=== PATIENT | female | born 1945 | race Caucasian/White ===

== ENCOUNTER 2016-09-05 18:31 | Inpatient (IN) | payer MEDICARE, BC ==
[2016-09-05] MEDS ORDERED: NS 0.9% 1000 ML* 1,000 ML IV ONE (18:44)
[2016-09-05 18:57] LABS: Comments Flag Yes; Hematocrit 43 % (35-47); Hemoglobin 13.5 g/dl (12.0-16.0); Mean Corpuscular HGB Conc 32 g/dl (31-36); Mean Corpuscular Hemoglobin 29 pg (27-31); Mean Corpuscular Volume 92 fL (80-97); Mean Platelet Volume 10 um3 (7.4-10.4); Red Blood Count 4.65 10^6/ul (4.0-5.4); Red Cell Distribution Width 19 % (10.5-15); White Blood Count 13.7 10^3/ul (3.5-10.8)
[2016-09-05 19:11] LABS: ALT 15 U/L (7-52); Albumin 3.5 g/dL (3.2-5.2); Alkaline Phosphatase 81 U/L (34-104); BUN/Creatinine Ratio 23.4 (8-20); Blood Urea Nitrogen 26 mg/dL (6-24); C Reactive Protein 176.27 mg/L (< 5.00); CO2 Carbon Dioxide 23 mmol/L (22-32); Calcium 9.6 mg/dL (8.6-10.3); Chloride 118 mmol/L (101-111); EGFR African American 62.7 (>60); EGFR Non-African American 48.7 (>60); Globulin 4.4 g/dL (2-4); Glucose 132 mg/dL (70-100); Sodium 150 mmol/L (133-145); Total Protein 7.9 g/dL (6.4-8.9)
[2016-09-05 19:13] LABS: Troponin I 0.01 ng/mL (<0.04)
--- NOTE | 2016-09-05 19:16 | RAD ---
INDICATION: Altered mental status COMPARISON: CT chest 09/03/2016; chest x-ray 06/09/2016 TECHNIQUE: An AP portable view obtained at 1901 hours is submitted. FINDINGS: Bones/Soft Tissues: There are no acute bony findings. Cardiomediastinal: The cardiomediastinal silhouette is normal. Lungs: There are no acute infiltrates. There is persistent obscuration left hemidiaphragm. Earlier CT imaging has shown airspace disease in the left lung base. Please refer also to CT chest report Pleura: There are no pleural effusions. Other: None IMPRESSION: STABLE LEFT BASILAR ABNORMALITIES
[2016-09-05] MEDS ORDERED: Acetaminophen SUPP* 650 MG SUPP PR ONE (21:32)
[2016-09-05] MEDS ORDERED: Levofloxacin 750 MG IVPREMIX(* 750 MG/150 ML BAG IVPB ONE (21:32)
[2016-09-05 21:55] LABS: Urine Bacteria Absent (Absent); Urine Bilirubin Negative (Negative); Urine Glucose Negative (Negative); Urine Nitrite Negative (Negative)
--- NOTE | 2016-09-05 23:23 | ED ---
Vel Yates Billy, scribed for Augie Krishnamurthy MD on 09/05/16 at 1910 . Complex/Multi-Sys Presentation - HPI Summary HPI Summary: Patient is a 71 year-old female BIBA to [facility] presenting with increased confusion and AMS today. Per EMS, patient's son reports fever at home TMax 101F. PMHx of Alzheimer's and frequent UTI. Level 5 caveat. - History Of Current Complaint Chief Complaint: EDAltMentalStatus Time Seen by Provider: 09/05/16 18:36 Hx Obtained From: EMS, Medical Records Hx From Patient Unobtainable Due To: Altered Mental Status - level 5 caveat Onset/Duration: Gradual Onset Timing: Constant Severity Currently: Moderate Severity Initially: Moderate Aggravating Factor(s): none Alleviating Factor(s): none Associated Signs And Symptoms: Positive: Confusion, Fever - Allergies/Home Medications Allergies/Adverse Reactions: Allergies Allergy/AdvReac Type Severity Reaction Status Date / Time Erythromycin Allergy GI Upset Verified 09/05/16 22:27 Latex Allergy Rash Verified 06/09/16 21:36 Quinine Allergy Anaphylatic Verified 06/09/16 21:36 Shock Scopolamine Allergy See Comment Verified 08/07/16 00:13 Sulfamethoxazole Allergy GI Upset Verified 09/05/16 22:27 w/Trimethoprim [From Bactrim] Home Medications: Home Medications Cholecalciferol [Vitamin D] 1,000 unit PO DAILY 09/05/16 [History Confirmed ] PMH/Surg Hx/FS Hx/Imm Hx Endocrine/Hematology History: Reports: Hx Thyroid Disease - Hypothyroidism, Hx Anemia Denies: Hx Diabetes Cardiovascular History: Reports: Hx Hypercholesterolemia, Hx Hypertension, Other Cardiovascular Problems/Disorders - HLD Denies: Hx Congestive Heart Failure, Hx Pacemaker/ICD Respiratory History: Reports: Hx Sleep Apnea Denies: Hx Asthma, Hx Chronic Obstructive Pulmonary Disease (COPD) GI History: Reports: Other GI Disorders - pancreatitis Denies: Hx Ulcer History: Reports: Hx Kidney Stones, Other Problems/Disorders - L hydronephrosis, urolitiasis Denies: Hx Dialysis, Hx Renal Disease Musculoskeletal History: Reports: Hx Arthritis - RHEUMATOID AND OSTEOARTHRITIS, Other Musculoskeletal History - RA, OA, fibromyalgia, chronic fatigue Sensory History: Reports: Hx Contacts or Glasses, Hx Hearing Problem Denies: Hx Hearing Aid Opthamlomology History: Reports: Hx Contacts or Glasses Neurological History: Reports: Hx Dementia - early onset Alzheimer's, Hx Nerve Disease - fibromyalgia, Hx Transient Ischemic Attacks (TIA), Other Neuro Impairments/Disorders - dementia, Alzheimers disease Psychiatric History: Reports: Hx Depression - ON MEDICATION FOR, Hx Post Traumatic Stress Disorder Denies: Hx Panic Disorder - Surgical History Surgery Procedure, Year, and Place: ROTATOR CUFF REPAIR. EYE LIDS LIFT. ARTHROSCOPIC KNEE. CYST REMOVED. T&A. KIDNEY STONE- LEFT URETHRAL STENT PLACED LAST WEEK Hx Anesthesia Reactions: No - poor history unable to obtain Infectious Disease History: Unable to Obtain/Confirm Infectious Disease History: Denies: Hx Hepatitis, Hx Human Immunodeficiency Virus (HIV), Hx of Known/ Suspected MRSA, History Other Infectious Disease, Traveled Outside the [place] in Last 30 Days - Family History Known Family History: Positive: Unknown - LEVEL 5 CAVEAT - Social History Alcohol Use: None Hx Substance Use: Yes Substance Use Type: Reports: None Hx Tobacco Use: Yes Smoking Status (MU): Former Smoker Type: Cigarettes Amount Used/How Often: UNKNOWN, level 5 caviat Have You Smoked in the Last Year: No Review of Systems Positive: Fever Neurological: Other - confusion All Other Systems Reviewed And Are Negative: No - Comments Additional Review of Systems Comments: Level 5 caveat. Physical Exam Triage Information Reviewed: Yes Vital Signs On Initial Exam: Initial Vitals Temp Pulse Resp BP Pulse Ox 97.6 F 102 15 152/86 99 09/05/16 18:52 09/05/16 18:52 09/05/16 18:52 09/05/16 18:52 09/05/16 18:52 Vital Signs Reviewed: Yes Completion Of Physical Exam Limited Due To: Altered Mental Status, Level 5 Appearance: Positive: Obese Skin: Positive: Warm, Skin Color Reflects Adequate Perfusion Head/Face: Positive: Normal Head/Face Inspection Eyes: Positive: Normal ENT: Positive: Other - dry mucous membranes Neck: Positive: Supple, Nontender Respiratory/Lung Sounds: Positive: Clear to Auscultation, Breath Sounds Present Cardiovascular: Positive: RRR Abdomen Description: Positive: Nontender, Soft Musculoskeletal: Positive: Normal Neurological: Positive: Other - stuporous, responds to verbal stimuli AVPU Assessment: Alert Diagnostics - Vital Signs Vital Signs Temp Pulse Resp BP Pulse Ox 09/05/16 18:52 97.6 F 102 15 152/86 99 - Laboratory Lab Results: Lab Results 09/05/16 Range/Units 18:45 WBC 13.7 H (3.5-10.8) 10^3/ul RBC 4.65 (4.0-5.4) 10^6/ul Hgb 13.5 (12.0-16.0) g/dl Hct 43 (35-47) % MCV 92 (80-97) fL MCH 29 (27-31) pg MCHC 32 (31-36) g/dl RDW 19 H (10.5-15) % Plt Count 177 (150-450) 10^3/ul MPV 10 (7.4-10.4) um3 Neut % (Auto) 70.7 (38-83) % Lymph % (Auto) 13.1 L (25-47) % [place] % (Auto) 15.2 H (1-9) % Eos % (Auto) 0.3 (0-6) % Baso % (Auto) 0.7 (0-2) % Absolute Neuts (auto) 9.7 H (1.5-7.7) 10^3/ul Absolute Lymphs (auto) 1.8 (1.0-4.8) 10^3/ul Absolute Monos (auto) 2.1 H (0-0.8) 10^3/ul Absolute Eos (auto) 0 (0-0.6) 10^3/ul Absolute Basos (auto) 0.1 (0-0.2) 10^3/ul Absolute Nucleated RBC 0.01 10^3/ul Nucleated RBC % 0.1 Result Diagrams: 09/05/16 18:45 09/05/16 21:15 Lab Statement: Any lab studies that have been ordered have been reviewed, and results considered in the medical decision making process. - Radiology CXR Radiology Interpretation Completed By: Radiologist - Stable left basilar abnormalities. - EKG 1831 EKG Interpretation: sinus tachy 113 bpm, nonspecific ST changes Complex Multi-Symp Course/Dx Course Of Treatment: Iraida Turner presented from home with a C/O decreased mental status. She is normally uncommunicative but alert and able to transfer and now she is stuporous and arouses to voice but doesn't follow commands. She was febrile with a slight leukocytosis and no obvious source. She was treated with fluids and antibiotics for sepsis. - Diagnoses Provider Diagnoses: Sepsis - Physician Notifications Discussed Care Of Patient With: Dr. Zambrano (hospitalist) @ 2225: accepts admission. Discharge - Discharge Plan Condition: Stable Disposition: ADMITTED TO [facility] Referrals: Marcela Best MD [Primary Care Provider] - The documentation as recorded by the Vel das Billy accurately reflects the service I personally performed and the decisions made by me, Augie Krishnamurthy MD.
[2016-09-05] MEDS ORDERED: Acetaminophen TAB* 325 MG PO PRN (23:38)
[2016-09-05] MEDS ORDERED: D5W 1000 ML BAG* 1,000 ML IV SCH (23:45)
[2016-09-06] MEDS: Heparin VIAL(*) 5000 UNITS/ML VIAL (FIVE THOUSAND) SUBCUT SCH ×3 (05:13→21:45)
[2016-09-06] MEDS: Levothyroxine TAB* 25 MCG TAB PO SCH (05:15)
[2016-09-06 05:22] LABS: BUN/Creatinine Ratio 23.4 (8-20); Calcium 9.5 mg/dL (8.6-10.3); EGFR African American 65.4 (>60); EGFR Non-African American 50.8 (>60); Hematocrit 42 % (35-47); Hemoglobin 12.9 g/dl (12.0-16.0); Mean Corpuscular HGB Conc 31 g/dl (31-36); Mean Corpuscular Hemoglobin 28 pg (27-31); Mean Corpuscular Volume 92 fL (80-97); Mean Platelet Volume 9 um3 (7.4-10.4); Potassium 3.8 mmol/L (3.5-5.0); Red Blood Count 4.54 10^6/ul (4.0-5.4); Red Cell Distribution Width 19 % (10.5-15)
--- NOTE | 2016-09-06 07:48 | RAD ---
HISTORY: Altered mental status COMPARISONS: 08/06/2016 TECHNIQUE: Multiple contiguous axial CT scans were obtained of the head without intravenous contrast. FINDINGS: HEMORRHAGE/INFARCT: There is no hemorrhage or acute infarct. MASSES/SHIFT: There is no mass or shift. EXTRA-AXIAL SPACES: There are no extra-axial fluid collections. SULCI AND VENTRICLES: There is diffuse and proportional enlargement of the sulci and ventricles. CEREBRUM: There is hypoattenuation of the periventricular and subcortical white matter. BRAINSTEM: There are no focal parenchymal abnormalities. CEREBELLUM: There are no focal parenchymal abnormalities. VESSELS: The vessels are grossly normal. PARANASAL SINUSES: The paranasal sinuses are clear. ORBITS: The orbits are unremarkable. BONES AND SOFT TISSUE: No bone or soft tissue abnormalities are noted. OTHER: None IMPRESSION: NO ACUTE INTRACRANIAL PATHOLOGY. DIFFUSE INVOLUTIONAL CHANGE WITH CHRONIC SMALL VESSEL ISCHEMIC CHANGES.
--- NOTE | 2016-09-06 08:05 | PN ---
Subjective Date of Service: 09/06/16 Interval History: pt nonverbal on assessment which is the pts baseline, she is alert in NAD, doesnt follow commands. no family at bedside. Objective Active Medications: Acetaminophen (Tylenol Tab*) 650 mg PO Q4H PRN PRN Reason: FEVER/PAIN Amlodipine Besylate (Norvasc Tab*) 10 mg PO DAILY [facility] Aspirin (Aspirin Ec Low Dose*) 81 mg PO DAILY [facility] Cholecalciferol (Vitamin D Tab*) 1,000 units PO DAILY [facility] Donepezil HCl (Aricept Tab*) 10 mg PO DAILY [facility] Heparin Sodium (Porcine) (Heparin Vial(*)) 5,000 units SUBCUT Q8HR [facility] Last Admin: 09/06/16 05:13 Dose: 5,000 units Dextrose (D5w 1000 Ml Bag*) 1,000 mls @ 75 mls/hr IV PER RATE [facility] Last Admin: 09/06/16 02:50 Dose: 75 mls/hr Levothyroxine Sodium (Synthroid Tab*) 25 mcg PO 0600 [facility] Last Admin: 09/06/16 05:15 Dose: 25 mcg Melatonin (Melatonin (Nf)) 3 mg PO BEDTIME [facility] PRN Reason: Protocol Memantine (Namenda Tab*) 10 mg PO BID [facility] Sertraline HCl (Zoloft*) 100 mg PO BEDTIME [facility] Vital Signs 09/06/16 09/06/16 09/06/16 00:00 00:01 00:20 Temperature Pulse Rate 105 106 Respiratory 19 21 Rate Blood Pressure 110/75 134/67 (mmHg) O2 Sat by Pulse 93 94 Oximetry 09/06/16 09/06/16 09/06/16 00:21 00:23 00:30 Temperature 97.3 F Pulse Rate 107 103 Respiratory 18 16 Rate Blood Pressure 100/79 (mmHg) O2 Sat by Pulse 94 93 Oximetry 09/06/16 09/06/16 01:30 04:07 Temperature 97.7 F 98.6 F Pulse Rate 106 102 Respiratory 18 20 Rate Blood Pressure 132/100 131/71 (mmHg) O2 Sat by Pulse 98 98 Oximetry Oxygen Devices in Use Now: None Appearance: alert, chronically ill appearing female sitting up in bed in NAD Eyes: No Scleral Icterus, PERRLA Ears/Nose/Mouth/Throat: NL Teeth, Lips, Gums, Mucous Membranes Moist Neck: NL Appearance and Movements; NL JVP Respiratory: Symmetrical Chest Expansion and Respiratory Effort, Clear to Auscultation Cardiovascular: NL Sounds; No Murmurs; No JVD, RRR, No Edema Abdominal: NL Sounds; No Tenderness; No Distention Lymphatic: No Cervical Adenopathy Extremities: No Edema, No Clubbing, Cyanosis Skin: No Rash or Ulcers, No Nodules or Sclerosis Neurological: - - alert Lines/Tubes/Other Access: Clean, Dry and Intact Peripheral IV Nutrition: Taking PO's Result Diagrams: 09/06/16 04:54 09/06/16 12:40 Additional Lab and Data: Lab Results 09/05/16 Range/Units 18:45 WBC 13.7 H (3.5-10.8) 10^3/ul RBC 4.65 (4.0-5.4) 10^6/ul Hgb 13.5 (12.0-16.0) g/dl Hct 43 (35-47) % MCV 92 (80-97) fL MCH 29 (27-31) pg MCHC 32 (31-36) g/dl RDW 19 H (10.5-15) % Plt Count 177 (150-450) 10^3/ul MPV 10 (7.4-10.4) um3 Neut % (Auto) 70.7 (38-83) % Lymph % (Auto) 13.1 L (25-47) % [place] % (Auto) 15.2 H (1-9) % Eos % (Auto) 0.3 (0-6) % Baso % (Auto) 0.7 (0-2) % Absolute Neuts (auto) 9.7 H (1.5-7.7) 10^3/ul Absolute Lymphs (auto) 1.8 (1.0-4.8) 10^3/ul Absolute Monos (auto) 2.1 H (0-0.8) 10^3/ul Absolute Eos (auto) 0 (0-0.6) 10^3/ul Absolute Basos (auto) 0.1 (0-0.2) 10^3/ul Absolute Nucleated RBC 0.01 10^3/ul Nucleated RBC % 0.1 Assess/Plan/Problems-Billing Assessment: Mrs. Turner is a 71 yo female with a PMH of Alzheimer's, frequent UTIs who [facility] to [facility] on 09/05 with fever, confusion and AMS. - Patient Problems (1) Altered mental status Comment: - unclear etilogy. Noted to have a fever of 101 last night now afebrile. Mild leukocytosis. Suspect viral syndrome. Hemodynamically stable. Urinalysis appears normal, await urine cx. Blood cx pending. Influenza negative. Chest xray - "stable left basilar abnormality". on room air, does not appear to be respiratory. Unclear source of infection, continue to monitor. - Brain CT negative - continue neuro checks (2) Hypernatremia Comment: - suspect dehydration due to poor PO intake. - Increase D5W 125 ml/hr and recheck Q4hrs (3) HTN (hypertension) Comment: controlled. continue norvasc (4) DVT prophylaxis Comment: SQ heparin (5) Hx of deep venous thrombosis Comment: - IVC filter placed 07/2016 (6) Dementia Current Visit: No Status: Acute Code(s): F03.90 - UNSPECIFIED DEMENTIA WITHOUT BEHAVIORAL DISTURBANCE SNOMED Code(s): 53357767 Comment: Stable. On Namenda and Aricept. (7) Hypothyroid Comment: Stable. Continue Synthroid. (8) Full code status Status and Disposition: inpatient with ams, hypernatremia and possible viral syndrome
[2016-09-06 10:00] LABS: BUN/Creatinine Ratio 24.5 (8-20); Calcium 9.4 mg/dL (8.6-10.3); EGFR African American 75.9 (>60)
[2016-09-06 10:01] LABS: Potassium 3.9 mmol/L (3.5-5.0)
[2016-09-06] MEDS: D5W 1000 ML BAG* 1,000 ML IV SCH ×2 (10:55→13:38)
[2016-09-06 13:12] LABS: BUN/Creatinine Ratio 25.8 (8-20); Calcium 9.2 mg/dL (8.6-10.3); EGFR African American 80.9 (>60); EGFR Non-African American 62.9 (>60); Potassium 3.3 mmol/L (3.5-5.0)
[2016-09-06] MEDS: Cholecalciferol TAB* 1000 UNITS PO SCH (15:05)
[2016-09-06] MEDS: amLODIPine TAB* 5 MG PO SCH (15:05)
[2016-09-06] MEDS: Aspirin EC Low Dose* 81 MG TAB.EC PO SCH (15:05)
[2016-09-06] MEDS: Donepezil TAB* 5 MG PO SCH (15:05)
[2016-09-06] MEDS: Memantine TAB* 10 MG PO SCH ×2 (15:05→21:46)
[2016-09-06 18:06] LABS: BUN/Creatinine Ratio 25.8 (8-20); EGFR African American 80.9 (>60); EGFR Non-African American 62.9 (>60); Potassium 3.2 mmol/L (3.5-5.0)
[2016-09-06] MEDS: NS 0.45% 1000 ML BAG* 1,000 ML IV SCH (18:47)
[2016-09-06] MEDS: Sertraline* 100 MG TAB PO SCH (21:45)
[2016-09-06] MEDS: Melatonin (NF) 3 MG TAB PO SCH (21:46)
--- NOTE | 2016-09-07 03:52 | HP ---
HISTORY AND PHYSICAL: DATE OF ADMISSION: 09/05/16 CHIEF COMPLAINT: Altered mental status. HISTORY OF PRESENT ILLNESS: The patient is a 71-year-old woman who presented to [facility] with apparently increased confusion and altered mental status. The patient herself cannot give me any information whatsoever. Apparently, she had a fever at home with a T-max of 101. She does have a past medical history for Alzheimer's and frequent UTIs; however in the ER, her workup was fairly unremarkable for fever or altered mental status. PAST MEDICAL HISTORY: Significant for advanced dementia, deconditioning, hypertension, hyperlipidemia, rheumatoid arthritis, hypothyroidism, depression, frequent UTIs, and morbid obesity. PAST SURGICAL HISTORY: Significant for rotator cuff repair and knee arthroscopy. CURRENT MEDICATIONS: 1. Cholecalciferol 1000 units daily. 2. Humira 40 mg subcu every 14 days. 3. Namenda 20 mg twice daily. 4. Melatonin 5 mg at bedtime. 5. Zoloft 100 mg at bedtime. 6. Methotrexate 20 mg on Wednesdays. 7. Aricept 10 mg daily. 8. Amlodipine 10 mg daily. 9. Levothyroxine 25 mcg daily. 10. Aspirin 81 mg daily. ALLERGIES/ADVERSE REACTION: To ERYTHROMYCIN, LATEX, QUININES, SCOPOLAMINE, and BACTRIM. FAMILY HISTORY: Unable to obtain from the patient. SOCIAL HISTORY: Unable to obtain from the patient. REVIEW OF SYSTEMS: Unable to obtain from the patient again due to her confusion. PHYSICAL EXAMINATION GENERAL: A pleasant woman, lying in bed, in no acute distress. VITAL SIGNS: T-max here is 98.9 degrees, heart rate 105 beats per minute, respiratory rate 18 breaths per minute, and pulse ox 93% on room air, and blood pressure 111/76. HEENT: Normocephalic, atraumatic. Pupils equal, round, and reactive to light. Moist mucous membranes. NECK: Supple. No JVD, bruits, palpable thyroid, or lymphadenopathy. CHEST: Clear to auscultation and percussion bilaterally. CARDIOVASCULAR: S1 and S2 appreciated. ABDOMEN: Positive bowel sounds in all 4 quadrants. Soft, nontender, and nondistended. EXTREMITIES: No cyanosis or clubbing; +2 peripheral pulses bilaterally. NEURO: She is alert and oriented x1. Moves all extremities. SKIN: No rashes or abnormalities. DIAGNOSTIC STUDIES/LAB DATA: White count is 13.7, hemoglobin 13.5, hematocrit is 43, platelets are 177. Sodium 150, potassium 3.7, chloride 118, CO2 23, BUN 26, creatinine 1.11, and glucose is 132. CRP 176.27. Urinalysis unremarkable. INR is 1.24. Influenza serology is negative. Brain CT again was noted by radiology to show no acute intracranial pathology, and diffuse involutional changes with chronic small vessel ischemic changes. Chest x-ray was noted by radiology to show small stable left basilar abnormalities. EKG shows sinus tachycardia at 130 beats per minute, normal axis, and nonspecific ST-T wave changes. ASSESSMENT AND PLAN: 1. Altered mental status: It is unclear as to why the patient's sodium is slightly high. She maybe dehydrated. I will put her on D5W to correct for her free water deficit. Recheck in the a.m. Do neuro checks q.4 hours. We will see if it clears herself over the next 24 hours. 2. Dementia: Consider current regimen. 3. Rheumatoid arthritis: Continue current medications. Does appear stable. I do not think this is part of the issue. 4. Hypertension: BP is adequately controlled. Continue current regimen. 5. Hypothyroidism: Stable. Continue Synthroid. 6. DVT prophylaxis: Heparin subcu. 7. Code status: The patient is a full code. TIME SPENT: Over 75 minutes was spent on this H and P; more than 40 minutes of which was spent in direct [id number] contact with the patient, evaluation, physical exam, counseling, and coordination of care. CC: Dr. Best* [id number]/[facility] #: [id number] [place]
[2016-09-07] MEDS: Heparin VIAL(*) 5000 UNITS/ML VIAL (FIVE THOUSAND) SUBCUT SCH ×3 (04:42→22:12)
[2016-09-07 07:05] LABS: Hematocrit 38 % (35-47); Hemoglobin 12.1 g/dl (12.0-16.0); Mean Corpuscular HGB Conc 32 g/dl (31-36); Mean Corpuscular Hemoglobin 29 pg (27-31); Mean Corpuscular Volume 91 fL (80-97); Mean Platelet Volume 10 um3 (7.4-10.4); Red Blood Count 4.17 10^6/ul (4.0-5.4); Red Cell Distribution Width 18 % (10.5-15); White Blood Count 10.3 10^3/ul (3.5-10.8)
[2016-09-07 07:16] LABS: BUN/Creatinine Ratio 23.4 (8-20); Calcium 9.2 mg/dL (8.6-10.3); EGFR African American 75.9 (>60); Potassium 3.4 mmol/L (3.5-5.0)
[2016-09-07] MEDS: KCL 20 MEQ/100 ML IVPREMIX* 20 MEQ/100 ML BAG IV SCH ×2 (08:03→12:31)
[2016-09-07 08:16] LABS: Magnesium 2.1 mg/dL (1.9-2.7)
[2016-09-07] MEDS: Levothyroxine TAB* 25 MCG TAB PO SCH (09:53)
--- NOTE | 2016-09-07 11:08 | PN ---
Subjective Date of Service: 09/07/16 Interval History: pt alert sitting up in bed in NAD. is nonverbal at her baseline. at bedside stating she is at her baseline and looks much better today "more awake and like herself". Pt [id number] (who also cares for and lives with the pt) reports she was recently sick with a "bad viral illness". Objective Active Medications: Acetaminophen (Tylenol Tab*) 650 mg PO Q4H PRN PRN Reason: FEVER/PAIN Amlodipine Besylate (Norvasc Tab*) 10 mg PO DAILY [facility] Last Admin: 09/06/16 15:05 Dose: Not Given Aspirin (Aspirin Ec Low Dose*) 81 mg PO DAILY [facility] Last Admin: 09/06/16 15:05 Dose: Not Given Cholecalciferol (Vitamin D Tab*) 1,000 units PO DAILY [facility] Last Admin: 09/06/16 15:05 Dose: Not Given Donepezil HCl (Aricept Tab*) 10 mg PO DAILY [facility] Last Admin: 09/06/16 15:05 Dose: Not Given Heparin Sodium (Porcine) (Heparin Vial(*)) 5,000 units SUBCUT Q8HR [facility] Last Admin: 09/07/16 04:42 Dose: 5,000 units Sodium Chloride (Ns 0.45% 1000 Ml Bag*) 1,000 mls @ 50 mls/hr IV PER RATE [facility] Last Admin: 09/06/16 18:47 Dose: 50 mls/hr Potassium Chloride (Potassium Chloride 20 Meq/100 Ml Ivpremix*) 20 meq in 100 mls @ 50 mls/hr IV Q2H [facility] Stop: 09/07/16 11:59 Last Admin: 09/07/16 08:03 Dose: 50 mls/hr Levothyroxine Sodium (Synthroid Tab*) 25 mcg PO 0600 [facility] Last Admin: 09/07/16 09:53 Dose: Not Given Melatonin (Melatonin (Nf)) 3 mg PO BEDTIME [facility] PRN Reason: Protocol Last Admin: 09/06/16 21:46 Dose: Not Given Memantine (Namenda Tab*) 10 mg PO BID [facility] Last Admin: 09/06/16 21:46 Dose: Not Given Sertraline HCl (Zoloft*) 100 mg PO BEDTIME [facility] Last Admin: 09/06/16 21:45 Dose: Not Given Vital Signs 09/06/16 09/06/16 09/06/16 11:34 15:24 19:46 Temperature 98.0 F 98.1 F 98.4 F Pulse Rate 215 97 107 Respiratory 16 16 17 Rate Blood Pressure 124/54 115/57 124/61 (mmHg) O2 Sat by Pulse 93 98 100 Oximetry 09/06/16 09/06/16 09/07/16 20:00 23:38 03:36 Temperature 98.3 F 97.5 F Pulse Rate 91 93 Respiratory 17 16 16 Rate Blood Pressure 142/57 135/59 (mmHg) O2 Sat by Pulse 100 97 97 Oximetry 09/07/16 09/07/16 07:22 07:25 Temperature 98.0 F Pulse Rate 91 Respiratory 16 Rate Blood Pressure 84/32 115/63 (mmHg) O2 Sat by Pulse 100 Oximetry Oxygen Devices in Use Now: None Appearance: obese female alert sitting up in bed in NAD Eyes: No Scleral Icterus, PERRLA, - - right eye noted green drainage and injection Ears/Nose/Mouth/Throat: NL Teeth, Lips, Gums, Mucous Membranes Moist Neck: NL Appearance and Movements; NL JVP Respiratory: Symmetrical Chest Expansion and Respiratory Effort, Clear to Auscultation Cardiovascular: NL Sounds; No Murmurs; No JVD, RRR, No Edema Abdominal: NL Sounds; No Tenderness; No Distention Extremities: No Edema, No Clubbing, Cyanosis Skin: No Rash or Ulcers, No Nodules or Sclerosis Lines/Tubes/Other Access: Clean, Dry and Intact Peripheral IV Nutrition: Taking PO's Result Diagrams: 09/07/16 06:21 09/07/16 06:21 Additional Lab and Data: Lab Results 09/05/16 Range/Units 18:45 WBC 13.7 H (3.5-10.8) 10^3/ul RBC 4.65 (4.0-5.4) 10^6/ul Hgb 13.5 (12.0-16.0) g/dl Hct 43 (35-47) % MCV 92 (80-97) fL MCH 29 (27-31) pg MCHC 32 (31-36) g/dl RDW 19 H (10.5-15) % Plt Count 177 (150-450) 10^3/ul MPV 10 (7.4-10.4) um3 Neut % (Auto) 70.7 (38-83) % Lymph % (Auto) 13.1 L (25-47) % [place] % (Auto) 15.2 H (1-9) % Eos % (Auto) 0.3 (0-6) % Baso % (Auto) 0.7 (0-2) % Absolute Neuts (auto) 9.7 H (1.5-7.7) 10^3/ul Absolute Lymphs (auto) 1.8 (1.0-4.8) 10^3/ul Absolute Monos (auto) 2.1 H (0-0.8) 10^3/ul Absolute Eos (auto) 0 (0-0.6) 10^3/ul Absolute Basos (auto) 0.1 (0-0.2) 10^3/ul Absolute Nucleated RBC 0.01 10^3/ul Nucleated RBC % 0.1 Assess/Plan/Problems-Billing Assessment: Mrs. Turner is a 71 yo female with a PMH of Alzheimer's, frequent UTIs who preented to the [facility] on 09/05 with fever, confusion and AMS. - Patient Problems (1) Altered mental status Comment: - resolved. - unclear etilogy. Noted to have a fever of 101 on admission now afebrile > 24 hours. Mild leukocytosis. Suspect viral syndrome. Hemodynamically stable. Urinalysis appears normal, await urine cx. Blood cx no growth. Influenza negative. Chest xray - "stable left basilar abnormality". on room air, does not appear to be respiratory. Unclear source of infection suspect viral - also had exposure from [id number] - Brain CT negative (2) Hypernatremia Comment: - Resolved suspect dehydration due to poor PO intake. -DC IVFs (3) HTN (hypertension) Comment: controlled. continue norvasc (4) DVT prophylaxis Comment: SQ heparin (5) Hx of deep venous thrombosis Comment: - IVC filter placed 07/2016; anticoagulation D/C due to sponeatous gluteal hematoma 07/26 (6) Dementia Current Visit: No Status: Acute Code(s): F03.90 - UNSPECIFIED DEMENTIA WITHOUT BEHAVIORAL DISTURBANCE SNOMED Code(s): 66284755 Comment: Stable. On Namenda and Aricept. (7) Hypothyroid Comment: Stable. Continue Synthroid. (8) Full code status Status and Disposition: inpatient with ams, hypernatremia and possible viral syndrome. Plan for DC home tomorrow.
[2016-09-07] MEDS: amLODIPine TAB* 5 MG PO SCH (11:29)
[2016-09-07] MEDS: Cholecalciferol TAB* 1000 UNITS PO SCH (11:30)
[2016-09-07] MEDS: Memantine TAB* 10 MG PO SCH ×2 (11:30→22:12)
[2016-09-07] MEDS: Donepezil TAB* 5 MG PO SCH (11:30)
[2016-09-07] MEDS: Aspirin EC Low Dose* 81 MG TAB.EC PO SCH (11:30)
[2016-09-07 12:00] LABS: C Reactive Protein 183.96 mg/L (< 5.00)
--- NOTE | 2016-09-07 12:49 | EEG ---
ELECTROENCEPHALOGRAPHY: DATE OF STUDY: 09/06/16 - ROOM #435 LOCATION: She is an inpatient. REFERRING PROVIDER: Dr. Zambrano. CLINICAL PROBLEM: Increased confusion in a patient with dementia. The patient has a fever. MEDICATIONS: Include: 1. Namenda. 2. Aricept. 3. Synthroid. 4. Sertraline. 5. Norvasc. REPORT: This 16-channel EEG is remarkable for background activity consisting of movement artifact at the onset of the tracing. The patient calms down and background rhythms consist of mixed theta and delta rhythms with some faster, low- voltage rhythms seen as well. Rhythms are symmetrical and fairly synchronous. The patient is described as moaning and twitching through much of the recording. Movement artifact obscures portions of the tracing. Quieter portions reveal a generally central and parasagittal slowing superimposed on bitemporal theta activity and some faster rhythms. Frequently during the tracing, foot jerks either unilaterally or bilaterally as well as whole body jerks are notated by the loom technician. During this time, there are no epileptiform discharges or other changes in background rhythms other than movement. Sleep stages are not recognized. Activation procedures are not attempted. CLINICAL IMPRESSION: Abnormal EEG due to generalized slowing and disorganization of background rhythms consistent with diffuse cerebral dysfunction. There are no epileptiform discharges including during multiple episodes of leg or body twitching. [id number]/[facility] #: [id number] [facility]
[2016-09-07] MEDS: NS 0.45% 1000 ML BAG* 1,000 ML IV SCH (14:47)
[2016-09-07] MEDS: Polymyx/Trimethoprim OPTH* 10 ML BTL RIGHT EYE SCH ×3 (15:51→22:12)
[2016-09-07] MEDS: Melatonin (NF) 3 MG TAB PO SCH (22:11)
[2016-09-07] MEDS: Sertraline* 100 MG TAB PO SCH (22:12)
[2016-09-08] MEDS: Polymyx/Trimethoprim OPTH* 10 ML BTL RIGHT EYE SCH ×5 (01:35→13:12)
[2016-09-08] MEDS: Levothyroxine TAB* 25 MCG TAB PO SCH (06:18)
[2016-09-08] MEDS: Heparin VIAL(*) 5000 UNITS/ML VIAL (FIVE THOUSAND) SUBCUT SCH (06:18)
[2016-09-08 08:01] LABS: BUN/Creatinine Ratio 23.6 (8-20); Calcium 9.2 mg/dL (8.6-10.3); EGFR African American 80.9 (>60); EGFR Non-African American 62.9 (>60); Globulin 3.7 g/dL (2-4); Potassium 3.8 mmol/L (3.5-5.0); Total Bilirubin 0.8 mg/dL (0.2-1.0); Total Protein 6.7 g/dL (6.4-8.9)
[2016-09-08] MEDS: Donepezil TAB* 5 MG PO SCH (10:09)
[2016-09-08] MEDS: Cholecalciferol TAB* 1000 UNITS PO SCH (10:10)
[2016-09-08] MEDS: Aspirin EC Low Dose* 81 MG TAB.EC PO SCH (10:10)
[2016-09-08] MEDS: amLODIPine TAB* 5 MG PO SCH (10:10)
[2016-09-08] MEDS: Memantine TAB* 10 MG PO SCH (10:11)
--- NOTE | 2016-09-08 11:39 | DCNOTE ---
Subjective Date of Service: 09/08/16 Interval History: patient is alert sitting up in bed in NAD. Somewhat interactive but is nonverbal and appears to be confused at her baseline. Per this is her basline. He agrees with plan to take pt home and has transferred pt by himself. Objective Active Medications: Acetaminophen (Tylenol Tab*) 650 mg PO Q4H PRN PRN Reason: FEVER/PAIN Amlodipine Besylate (Norvasc Tab*) 10 mg PO DAILY [facility] Last Admin: 09/08/16 10:10 Dose: 10 mg Aspirin (Aspirin Ec Low Dose*) 81 mg PO DAILY [facility] Last Admin: 09/08/16 10:10 Dose: 81 mg Cholecalciferol (Vitamin D Tab*) 1,000 units PO DAILY [facility] Last Admin: 09/08/16 10:10 Dose: 1,000 units Donepezil HCl (Aricept Tab*) 10 mg PO DAILY [facility] Last Admin: 09/08/16 10:09 Dose: 10 mg Heparin Sodium (Porcine) (Heparin Vial(*)) 5,000 units SUBCUT Q8HR [facility] Last Admin: 09/08/16 06:18 Dose: 5,000 units Levothyroxine Sodium (Synthroid Tab*) 25 mcg PO 0600 [facility] Last Admin: 09/08/16 06:18 Dose: 25 mcg Melatonin (Melatonin (Nf)) 3 mg PO BEDTIME [facility] PRN Reason: Protocol Last Admin: 09/07/16 22:11 Dose: 3 mg Memantine (Namenda Tab*) 10 mg PO BID [facility] Last Admin: 09/08/16 10:11 Dose: 10 mg Polymyxin/Trimethoprim Sulfate (Polytrim Ophth*) 1 drop RIGHT EYE Q3H [facility] Last Admin: 09/08/16 10:09 Dose: 1 drop Sertraline HCl (Zoloft*) 100 mg PO BEDTIME [facility] Last Admin: 09/07/16 22:12 Dose: 100 mg Vital Signs 09/07/16 09/07/16 09/07/16 16:09 20:00 20:20 Temperature 98.0 F 99.0 F Pulse Rate 113 80 Respiratory 16 16 16 Rate Blood Pressure 115/71 123/63 (mmHg) O2 Sat by Pulse 100 97 Oximetry 09/07/16 09/08/16 09/08/16 23:59 04:15 07:53 Temperature 97.5 F 97.2 F 98.1 F Pulse Rate 78 82 76 Respiratory 16 20 16 Rate Blood Pressure 111/47 115/43 133/72 (mmHg) O2 Sat by Pulse 98 99 98 Oximetry Oxygen Devices in Use Now: None Appearance: obese female alert, NAD. confused, dementia at baseline Eyes: No Scleral Icterus, PERRLA, - - right eye injected, noted green drainage in corner of eye Ears/Nose/Mouth/Throat: NL Teeth, Lips, Gums, Clear Oropharnyx, Mucous Membranes Moist Neck: NL Appearance and Movements; NL JVP Respiratory: Symmetrical Chest Expansion and Respiratory Effort, Clear to Auscultation Cardiovascular: NL Sounds; No Murmurs; No JVD, RRR, No Edema Abdominal: NL Sounds; No Tenderness; No Distention, - - obese Lymphatic: No Cervical Adenopathy Extremities: No Edema, - - LE Result Diagrams: 09/07/16 06:21 09/08/16 07:39 Additional Lab and Data: Lab Results 09/05/16 Range/Units 18:45 WBC 13.7 H (3.5-10.8) 10^3/ul RBC 4.65 (4.0-5.4) 10^6/ul Hgb 13.5 (12.0-16.0) g/dl Hct 43 (35-47) % MCV 92 (80-97) fL MCH 29 (27-31) pg MCHC 32 (31-36) g/dl RDW 19 H (10.5-15) % Plt Count 177 (150-450) 10^3/ul MPV 10 (7.4-10.4) um3 Neut % (Auto) 70.7 (38-83) % Lymph % (Auto) 13.1 L (25-47) % [place] % (Auto) 15.2 H (1-9) % Eos % (Auto) 0.3 (0-6) % Baso % (Auto) 0.7 (0-2) % Absolute Neuts (auto) 9.7 H (1.5-7.7) 10^3/ul Absolute Lymphs (auto) 1.8 (1.0-4.8) 10^3/ul Absolute Monos (auto) 2.1 H (0-0.8) 10^3/ul Absolute Eos (auto) 0 (0-0.6) 10^3/ul Absolute Basos (auto) 0.1 (0-0.2) 10^3/ul Absolute Nucleated RBC 0.01 10^3/ul Nucleated RBC % 0.1 Assess/Plan/Problems-Billing Assessment: Mrs. Turner is a 71 yo female with a PMH of Alzheimer's, frequent UTIs who presented to the emergency department on 09/05 with fever, confusion and AMS. - Patient Problems (1) Altered mental status Comment: - resolved. - unclear etilogy suspect viral syndrome. Noted to have a fever of 101 on admission now afebrile > 48 hours. leukocytosis resolved. Hemodynamically stable. Urinalysis appears normal, await urine cx. Blood cx no growth. Influenza negative. Chest xray - "stable left basilar abnormality". on room air , does not appear to be respiratory. Unclear source of infection suspect viral - also had exposure from [id number] - Brain CT negative (2) Hypernatremia Comment: - Resolved suspect dehydration due to poor PO intake. -DC IVFs (3) HTN (hypertension) Comment: controlled. continue norvasc (4) DVT prophylaxis Comment: SQ heparin (5) Hx of deep venous thrombosis Comment: - IVC filter placed 07/2016; anticoagulation D/C due to sponeatous gluteal hematoma 07/26 (6) Dementia Comment: Stable. On Namenda and Aricept. (7) Hypothyroid Comment: Stable. Continue Synthroid. (8) Full code status Status and Disposition: inpatient with ams, hypernatremia and possible viral syndrome. Plan for DC home today - and [id number] were able to transfer pt independently
[2016-09-08 12:34] VITALS: BP 120/78
--- NOTE | 2016-09-09 00:34 | DS ---
DISCHARGE SUMMARY: DATE OF ADMISSION: 09/05/16 DATE OF DISCHARGE: 09/08/16 PROVIDER: Barbara Brunson NP ATTENDING PHYSICIAN: Dr. Parekh* (report dictated by Barbara Brunson NP). PRIMARY CARE PROVIDER: Dr. Best. PRIMARY DIAGNOSES: 1. Viral syndrome. 2. Right eye conjunctivitis. SECONDARY DIAGNOSES: 1. Advanced dementia. 2. Hypertension. 3. Hyperlipidemia. 4. Rheumatoid arthritis. 5. Hypothyroidism. 6. Depression. 7. History of frequent urinary tract infections. 8. Morbid obesity. 9. History of recent deep venous thrombosis, was on Coumadin, having a spontaneous gluteal hematoma in July 2016 in which she was hospitalized and had an IVC filter placed. DISCHARGE MEDICATIONS: 1. Vitamin D 1000 units p.o. daily. 2. Humira 40 mg subcu every 14 days. 3. Namenda 20 mg b.i.d. 4. Melatonin 5 mg p.o. at bedtime. 5. Zoloft 100 mg p.o. at bedtime. 6. Methotrexate 20 mg on Friday. 7. Aricept 10 mg p.o. daily. 8. Amlodipine 10 mg p.o. daily. 9. Synthroid 25 mcg daily. 10. Aspirin 81 mg p.o. daily. 11. Polytrim ophth 1 drop to right eye q.4 hours x5 days. HISTORY OF PRESENT ILLNESS AND HOSPITAL COURSE: Please see history and physical by Dr. Zambrano for full admission details; but in summary, this is a 71- year-old female who presented to the emergency department on 09/05/16 for noted altered mental status. Ms. Turner lives at home with her , who is her full-time caregiver. The patient's noted that she had a fever at home of 101 and appeared to be more lethargic than normal. At her baseline, she is nonverbal and is bedbound. He reports that he was told to come to the emergency department if she had a fever due to the IVC filter, became concerned as well as she has frequent UTIs. In emergency department, her workup was fairly unremarkable; however, she was noted to have a temperature of 101.3, mild leukocytosis of 13.7, and more lethargic than her baseline. Her urinalysis was unimpressive. She was admitted to the hospitalist service, started on IV fluids. Initially was given Levaquin in the emergency department , but this was not continued. The patient is unwell throughout her hospitalization. She has had no further fevers since admission and this is suspected to be a viral syndrome. The patient's [id number] whom lives with the patient and her recently had a viral illness in which she was hospitalized and it was possible she was exposed to this. Today, on discharge, the patient is alert, confused, somewhat interactive; however, this is her baseline per her . The patient's was able to transfer the patient out of bed by himself and feels that the patient is at her baseline and is ready to go home. The patient has remained hemodynamically stable throughout her hospitalization. She is noted to have an elevated CRP of 183; however, her leukocytosis has resolved. No further fevers and there is no clear source of bacterial infection, thought to be secondary to viral syndrome. I did add on a procalcitonin, which is negative at 0.1 making it less likely to be bacterial. Influenza A and B negative. Blood cultures, no growth, day 2. The patient was noted to have what appears to be a right eye conjunctivitis with injection in the eye with noted green discharge. She is being treated for conjunctivitis. DISCHARGE PLANS: 1. The patient will be discharged to home in care of her . 2. Recommend to follow up with Dr. Best this week. 3. Visiting nurse service will continue in the home. CONDITION ON DISCHARGE: Stable. TIME SPENT: Approximately 60 minutes were spent on this discharge. BARBARA BRUNSON NP CC: Dr. Best* [id number]/[facility] #: [id number] ROSENDO
== END 2016-09-08 14:41 | disposition home or self-care (01) | DRG 866 ==
LOC: ED 18:31 → MEDTELE 23:38
PROVIDERS: ADMIT Internal Medicine; ATTEND Internal Medicine
DX: B34.9 Viral infection, unspecified (principal); E87.0 Hyperosmolality and hypernatremia; H10.9 Unspecified conjunctivitis; G30.9 Alzheimer's disease, unspecified; F02.80 Dementia in other diseases classified elsewhere, unspecified severity, without behavioral disturbance, psychotic disturbance, mood disturbance, and anxiety; I10 Essential (primary) hypertension; E78.5 Hyperlipidemia, unspecified; M06.9 Rheumatoid arthritis, unspecified; E03.9 Hypothyroidism, unspecified; F32.9 Major depressive disorder, single episode, unspecified; E86.0 Dehydration; E66.9 Obesity, unspecified; Z68.38 Body mass index [BMI] 38.0-38.9, adult; Z86.718 Personal history of other venous thrombosis and embolism; Z79.01 Long term (current) use of anticoagulants; Z87.440 Personal history of urinary (tract) infections; Z79.82 Long term (current) use of aspirin; Z79.899 Other long term (current) drug therapy; Z88.8 Allergy status to other drugs, medicaments and biological substances; Z88.1 Allergy status to other antibiotic agents; Z91.040 Latex allergy status
CPT/HCPCS: 36415; 70450; 71010; 71250; 80048; 80053; 81003; 81015; 83605; 83735; 84145; 84484; 85025; 85610; 86140; 87040; 87502; 93005; 95819; 96374; 99285; A9270-GY; J1644; J3480

== ENCOUNTER 2016-10-05 12:26 | Inpatient (IN) | payer MEDICARE, BC ==
[2016-10-05] MEDS ORDERED: NS 0.9% 1000 ML* 1,000 ML IV SCH (13:00)
[2016-10-05 13:30] LABS: Hematocrit 34 % (35-47); Hemoglobin 10.7 g/dl (12.0-16.0); Mean Corpuscular HGB Conc 31 g/dl (31-36); Mean Corpuscular Hemoglobin 29 pg (27-31); Mean Corpuscular Volume 91 fL (80-97); Red Blood Count 3.71 10^6/ul (4.0-5.4); Red Cell Distribution Width 19 % (10.5-15); White Blood Count 3.9 10^3/ul (3.5-10.8)
[2016-10-05 13:31] LABS: Add Diff/Slide Review? Slide Review Added; Comments Flag Yes
[2016-10-05 13:45] LABS: Albumin 3.1 g/dL (3.2-5.2); C Reactive Protein 86.86 mg/L (< 5.00); Calcium 9.1 mg/dL (8.6-10.3); EGFR African American 59.6 (>60); EGFR Non-African American 46.3 (>60); Globulin 3.7 g/dL (2-4); Magnesium 2.5 mg/dL (1.9-2.7); Potassium 3.4 mmol/L (3.5-5.0); Total Bilirubin 1.1 mg/dL (0.2-1.0); Total Protein 6.8 g/dL (6.4-8.9)
[2016-10-05 14:06] LABS: Mean Platelet Volume 11 um3 (7.4-10.4)
[2016-10-05 14:07] LABS: TSH (Thyroid Stimulating Horm) 1.67 mcIU/mL (0.34-5.60)
--- NOTE | 2016-10-05 14:56 | RAD ---
INDICATION: Altered mental status COMPARISON: September 05, 2016 TECHNIQUE: An AP portable view obtained at 1420 hours is submitted. FINDINGS: Bones/Soft Tissues: There are no acute bony findings. Cardiomediastinal: The cardiomediastinal silhouette is normal. Lungs: The right lung is clear. There is minor left basilar abnormalities, unchanged. There Pleura: There are no pleural effusions. Other: None IMPRESSION: NO ACTIVE DISEASE.
[2016-10-05 15:15] LABS: Urine Bacteria Absent (Absent); Urine Bilirubin Negative (Negative); Urine Glucose Negative (Negative); Urine Nitrite Negative (Negative)
[2016-10-05] MEDS ORDERED: Acetaminophen TAB* 325 MG PO PRN (15:16)
[2016-10-05 15:18] LABS: Troponin I 0.01 ng/mL (<0.04)
[2016-10-05] MEDS: D5W 1000 ML BAG* 1,000 ML IV SCH ×2 (15:34→17:42)
--- NOTE | 2016-10-05 15:46 | ED ---
Vel Yates Billy, scribed for Gregor Sweet MD on 10/05/16 at 1306 . Altered Mental Status - HPI Summary HPI Summary: 71 year-old female arrives to the ED with AMS. Patient has a history of Alzheimer's disease, but nurse reports that her current symptoms are much worse than baseline. She currently takes Apixaban due to history of blood clots. Full history not obtained from the patient due to AMS, level 5 caveat. - History Of Current Complaint Chief Complaint: EDAltMentalStatus Stated Complaint: AMS Time Seen by Provider: 10/05/16 12:42 Hx Obtained From: EMS, Other: - nurse Hx From Patient Unobtainable Due To: Altered Mental Status Onset/Duration: Unknown Timing: Constant Severity Initially: Moderate Severity Currently: Moderate Character: Responsiveness Aggravating Factor(s): Unknown Alleviating Factor(s): Unknown - Allergies/Home Medications Allergies/Adverse Reactions: Allergies Allergy/AdvReac Type Severity Reaction Status Date / Time Latex Allergy Rash Verified 10/05/16 12:43 Quinine Allergy Anaphylatic Verified 10/05/16 12:43 Shock Scopolamine Allergy See Comment Verified 10/05/16 12:43 Erythromycin AdvReac GI Upset Verified 10/05/16 12:43 Sulfamethoxazole AdvReac GI Upset Verified 10/05/16 12:43 w/Trimethoprim [From Bactrim] PMH/Surg Hx/FS Hx/Imm Hx Endocrine/Hematology History: Reports: Hx Thyroid Disease, Hx Anemia Denies: Hx Diabetes Cardiovascular History: Reports: Hx Deep Vein Thrombosis - [place] Filter, Hx Hypercholesterolemia, Hx Hypertension, Other Cardiovascular Problems/ Disorders - HLD Denies: Hx Congestive Heart Failure, Hx Pacemaker/ICD Respiratory History: Reports: Hx Sleep Apnea Denies: Hx Asthma, Hx Chronic Obstructive Pulmonary Disease (COPD) GI History: Reports: Other GI Disorders - pancreatitis, UTi Denies: Hx Ulcer History: Reports: Hx Kidney Stones, Other Problems/Disorders - L hydronephrosis, urolitiasis Denies: Hx Dialysis, Hx Renal Disease Musculoskeletal History: Reports: Hx Arthritis - RHEUMATOID AND OSTEOARTHRITIS, Hx Rheumatoid Arthritis, Other Musculoskeletal History - RA, OA, fibromyalgia, chronic fatigue Sensory History: Reports: Hx Contacts or Glasses, Hx Hearing Problem Denies: Hx Hearing Aid Opthamlomology History: Reports: Hx Contacts or Glasses Neurological History: Reports: Hx Dementia - early onset Alzheimer's, Hx Nerve Disease - fibromyalgia, Hx Transient Ischemic Attacks (TIA), Other Neuro Impairments/Disorders - dementia, Alzheimers disease Psychiatric History: Reports: Hx Depression - ON MEDICATION FOR, Hx Post Traumatic Stress Disorder Denies: Hx Panic Disorder - Surgical History Surgery Procedure, Year, and Place: ROTATOR CUFF REPAIR. EYE LIDS LIFT. ARTHROSCOPIC KNEE. CYST REMOVED. T&A. KIDNEY STONE- LEFT URETHRAL STENT PLACED LAST WEEK Hx Anesthesia Reactions: No - poor history unable to obtain Infectious Disease History: No Infectious Disease History: Denies: Hx Hepatitis, Hx Human Immunodeficiency Virus (HIV), Hx of Known/ Suspected MRSA, History Other Infectious Disease, Traveled Outside the [place] in Last 30 Days - Family History Known Family History: Positive: Unknown - LEVEL 5 CAVEAT - Social History Alcohol Use: unable to obtain info Hx Substance Use: Yes Substance Use Type: Reports: None Hx Tobacco Use: Yes Smoking Status (MU): Former Smoker Type: Cigarettes Amount Used/How Often: UNKNOWN, level 5 caviat Have You Smoked in the Last Year: No Review of Systems Neurological: Other - AMS All Other Systems Reviewed And Are Negative: No - Comments Additional Review of Systems Comments: Full ROS unobtainable due to patient's AMS Physical Exam Triage Information Reviewed: Yes Vital Signs On Initial Exam: Initial Vitals Temp Pulse Resp BP Pulse Ox 98.3 F 96 16 106/89 98 10/05/16 12:39 10/05/16 12:39 10/05/16 12:39 10/05/16 12:39 10/05/16 12:39 Vital Signs Reviewed: Yes Completion Of Physical Exam Limited Due To: Altered Mental Status Appearance: Positive: Well-Appearing, No Pain Distress Skin: Positive: Warm, Skin Color Reflects Adequate Perfusion, Dry, Other - bilateral lower extremity ecchymosis Head/Face: Positive: Normal Head/Face Inspection Eyes: Positive: JAMEY - 3mm bilaterally, slightly reactive ENT: Positive: Other - dry oral mucosa. Negative: Normal ENT inspection Dental: Positive: Bleeding - blood in gums Neck: Positive: Supple, Nontender Respiratory/Lung Sounds: Positive: Clear to Auscultation, Breath Sounds Present Cardiovascular: Positive: RRR Abdomen Description: Positive: Nontender, Soft Bowel Sounds: Positive: Present Musculoskeletal: Positive: Normal, Strength/ROM Intact Neurological: Positive: Other - Moving all four extremities, positive tremor in RLE. Negative: Alert, Oriented to Person Place, Time Psychiatric: Positive: Other - AMS - [place] Coma Scale Coma Scale Total: 10 Diagnostics - Vital Signs Vital Signs Temp Pulse Resp BP Pulse Ox 10/05/16 12:39 98.3 F 96 16 106/89 98 - Laboratory Lab Results: Lab Results 10/05/16 10/05/16 10/05/16 Range/Units 13:10 13:10 13:10 WBC 3.9 (3.5-10.8) 10^3/ul RBC 3.71 L (4.0-5.4) 10^6/ul Hgb 10.7 L (12.0-16.0) g/dl Hct 34 L (35-47) % MCV 91 (80-97) fL MCH 29 (27-31) pg MCHC 31 (31-36) g/dl RDW 19 H (10.5-15) % Plt Count 62 L D (150-450) 10^3/ul MPV 11 H (7.4-10.4) um3 Neut % (Auto) 61.3 (38-83) % Lymph % (Auto) 32.2 (25-47) % [place] % (Auto) 1.7 (1-9) % Eos % (Auto) 3.8 (0-6) % Baso % (Auto) 1.0 (0-2) % Absolute Neuts (auto) 2.4 (1.5-7.7) 10^3/ul Absolute Lymphs (auto) 1.3 (1.0-4.8) 10^3/ul Absolute Monos (auto) 0.1 (0-0.8) 10^3/ul Absolute Eos (auto) 0.1 (0-0.6) 10^3/ul Absolute Basos (auto) 0 (0-0.2) 10^3/ul Absolute Nucleated RBC 0 10^3/ul Nucleated RBC % 0.1 Hem Pathologist Commnt Pending INR (Anticoag Therapy) 1.25 H (0.89-1.11) APTT 26.3 (26.0-36.3) seconds Sodium 160 H* (133-145) mmol/L Potassium 3.4 L (3.5-5.0) mmol/L Chloride 131 H (101-111) mmol/L Carbon Dioxide 26 (22-32) mmol/L Anion Gap 3 (2-11) mmol/L BUN 29 H (6-24) mg/dL Creatinine 1.16 H (0.51-0.95) mg/dL Est GFR ( Amer) 59.6 (>60) Est GFR (Non-Af Amer) 46.3 (>60) BUN/Creatinine Ratio 25.0 H (8-20) Glucose 118 H (70-100) mg/dL Lactic Acid (0.5-2.0) mmol/L Calcium 9.1 (8.6-10.3) mg/dL Magnesium 2.5 (1.9-2.7) mg/dL Total Bilirubin 1.10 H (0.2-1.0) mg/dL AST 20 (13-39) U/L ALT 11 (7-52) U/L Alkaline Phosphatase 75 (34-104) U/L Total Creatine Kinase 18 (10-223) U/L CK-MB (CK-2) 0.4 L (0.6-6.3) ng/mL Troponin I 0.01 (<0.04) ng/mL C-Reactive Protein 86.86 H (< 5.00) mg/L B-Natriuretic Peptide ( - 100) pg/mL Total Protein 6.8 (6.4-8.9) g/dL Albumin 3.1 L (3.2-5.2) g/dL Globulin 3.7 (2-4) g/dL Albumin/Globulin Ratio 0.8 L (1-3) Lipase 14 (11.0-82.0) U/L TSH 1.67 (0.34-5.60) mcIU/mL Urine Color Urine Appearance Urine pH (5-9) Ur Specific [place] (1.010-1.030) Urine Protein (Negative) Urine Ketones (Negative) Urine Blood (Negative) Urine Nitrate (Negative) Urine Bilirubin (Negative) Urine Urobilinogen (Negative) Ur Leukocyte Esterase (Negative) Urine WBC (Auto) (Absent) Urine RBC (Auto) (Absent) Ur Squamous Epith Cells (Absent) Urine Bacteria (Absent) Urine Glucose (Negative) 10/05/16 10/05/16 10/05/16 Range/Units 13:10 13:10 14:55 WBC (3.5-10.8) 10^3/ul RBC (4.0-5.4) 10^6/ul Hgb (12.0-16.0) g/dl Hct (35-47) % MCV (80-97) fL MCH (27-31) pg MCHC (31-36) g/dl RDW (10.5-15) % Plt Count (150-450) 10^3/ul MPV (7.4-10.4) um3 Neut % (Auto) (38-83) % Lymph % (Auto) (25-47) % [place] % (Auto) (1-9) % Eos % (Auto) (0-6) % Baso % (Auto) (0-2) % Absolute Neuts (auto) (1.5-7.7) 10^3/ul Absolute Lymphs (auto) (1.0-4.8) 10^3/ul Absolute Monos (auto) (0-0.8) 10^3/ul Absolute Eos (auto) (0-0.6) 10^3/ul Absolute Basos (auto) (0-0.2) 10^3/ul Absolute Nucleated RBC 10^3/ul Nucleated RBC % Hem Pathologist Commnt INR (Anticoag Therapy) (0.89-1.11) APTT (26.0-36.3) seconds Sodium (133-145) mmol/L Potassium (3.5-5.0) mmol/L Chloride (101-111) mmol/L Carbon Dioxide (22-32) mmol/L Anion Gap (2-11) mmol/L BUN (6-24) mg/dL Creatinine (0.51-0.95) mg/dL Est GFR ( Amer) (>60) Est GFR (Non-Af Amer) (>60) BUN/Creatinine Ratio (8-20) Glucose (70-100) mg/dL Lactic Acid 1.4 (0.5-2.0) mmol/L Calcium (8.6-10.3) mg/dL Magnesium (1.9-2.7) mg/dL Total Bilirubin (0.2-1.0) mg/dL AST (13-39) U/L ALT (7-52) U/L Alkaline Phosphatase (34-104) U/L Total Creatine Kinase (10-223) U/L CK-MB (CK-2) (0.6-6.3) ng/mL Troponin I (<0.04) ng/mL C-Reactive Protein (< 5.00) mg/L B-Natriuretic Peptide 56 ( - 100) pg/mL Total Protein (6.4-8.9) g/dL Albumin (3.2-5.2) g/dL Globulin (2-4) g/dL Albumin/Globulin Ratio (1-3) Lipase (11.0-82.0) U/L TSH (0.34-5.60) mcIU/mL Urine Color [place] Urine Appearance Cloudy Urine pH 6.0 (5-9) Ur Specific [place] 1.021 (1.010-1.030) Urine Protein 2+(100 mg/dl) H (Negative) Urine Ketones Negative (Negative) Urine Blood 2+ H (Negative) Urine Nitrate Negative (Negative) Urine Bilirubin Negative (Negative) Urine Urobilinogen Negative (Negative) Ur Leukocyte Esterase 3+ H (Negative) Urine WBC (Auto) 3+(>20/hpf) H (Absent) Urine RBC (Auto) 3+(>10/hpf) H (Absent) Ur Squamous Epith Cells Present H (Absent) Urine Bacteria Absent (Absent) Urine Glucose Negative (Negative) Result Diagrams: 10/05/16 13:10 10/05/16 13:10 Lab Statement: Any lab studies that have been ordered have been reviewed, and results considered in the medical decision making process. - EKG 13:15 Cardiac Rate: NL - 98 BPM EKG Rhythm: Sinus Rhythm - NSR Ectopy: None EKG Interpretation: T waves flat in inferior and lateral leads. EKG Comparison: No Significant Change - No significant change from EKG taken Altered Mental Statu Course/Dx - Course Assessment/Plan: ADMIT HOSPITALIST STABLE - Diagnoses Discharge Diagnoses: Altered mental state, UTI (urinary tract infection), Hypernatremia Discharge - Discharge Plan Condition: Stable Disposition: ADMITTED TO [facility] Referrals: Marcela Best MD [Primary Care Provider] - The documentation as recorded by the Vel das Billy accurately reflects the service I personally performed and the decisions made by , Gregor Sweet MD.
[2016-10-05] MEDS ORDERED: cefTRIAXone VIAL(*) 1,000 MG in NS 0.9% 50 ML* 50 ML IVPB SCH (16:00)
[2016-10-05] MEDS ORDERED: cefTRIAXone(*) 1 GM in NS 0.9% 50 ML* 50 ML IVPB SCH (16:06)
[2016-10-05] MEDS: cefTRIAXone(*) 1 GM in NS 0.9% 50 ML* 50 ML IVPB SCH (16:10)
[2016-10-05] MEDS: Sertraline* 100 MG TAB PO SCH (20:12)
[2016-10-05] MEDS: Memantine TAB* 10 MG PO SCH (20:12)
--- NOTE | 2016-10-05 20:20 | HP ---
ADMISSION HISTORY AND PHYSICAL: DATE OF ADMISSION: 10/05/16 PRIMARY CARE PROVIDER: Marcela Bets MD HEALTH CARE PROXY: Her . CODE STATUS: Full. Discussed with the patient's /health care proxy on presentation. SOURCE OF INFORMATION: History obtained from interview with the patient's and review of past medical records. RELIABILITY: Good. CHIEF COMPLAINT: Increased lethargy. HISTORY OF PRESENT ILLNESS: This is a 71-year-old female with advanced Alzheimer dementia, significant decline over the last 6 months. Approximately 6 months ago, she was ambulatory, able to feed herself, and at least somewhat interactive. In the intervening 6 months, she has had several intercurrent illnesses including sepsis and urinary tract infections. Her most recent hospital stay was 09/05/16 to 09/08/16 when she presented with altered mental status and fever, which was thought to represent a viral syndrome. She returned back to her baseline mental status, which was able to speak although what she said was nonsensical, smiles, but does not follow commands. Three days prior to admission, the patient's noted decreased oral intake with almost nothing taken in yesterday and nothing eaten or drunken today. Today, he noticed increased lethargy, unable to chew, less interactive. For this reason, he brought her to the emergency room. Additionally, the night prior to presentation during oral care, he noticed bleeding around the gums in her mouth. Discussed with Dr. Best's office who advised him to discontinue Eliquis at that time which he did. Additionally, Humira was discontinued on 04/27 after discussion with the patient's small stock facer. There have been no other medication changes to the patient's 's knowledge. There has been no reported fevers, chills, night sweats, changes in weight, cough, sick contacts, diarrhea, or constipation. Otherwise, the patient is unable to participate meaningfully in review of systems. PAST MEDICAL HISTORY: Includes: 1. Advanced dementia. 2. Hypertension. 3. Hyperlipidemia. 4. Rheumatoid arthritis, on methotrexate and recently Humira until 09/19/16. 5. Hypothyroidism. 6. Depression. 7. Multiple urinary tract infections with a history of hydronephrosis and stent placement. 8. Morbid obesity. 9. History of DVT, previously on anticoagulation with Coumadin; however, status post having spontaneous gluteal hematoma in July 2016 and IVC placement, on Eliquis. HOME MEDICATIONS: Include: 1. Amlodipine 10 mg daily. 2. Zoloft 100 mg at bedtime. 3. Methotrexate 20 mg on Wednesdays. 4. Namenda 10 mg twice daily. 5. Melatonin 5 mg at bedtime. 6. Synthroid 25 mcg daily. 7. Aricept 10 mg daily. 8. Cholecalciferol 1000 mg daily. 9. Aspirin 81 mg daily. 10. Apixaban 2.5 mg twice daily. Please note the discontinuation of Humira. ALLERGIES: To ERYTHROMYCIN, LATEX, QUININE, SCOPOLAMINE, and BACTRIM. FAMILY HISTORY: Reviewed with the patient's . Does not include advanced dementia, malignancies. Noncontributory to this admission. SOCIAL HISTORY: No current tobacco, alcohol, or illicits. Lives with her at home. PHYSICAL EXAMINATION GENERAL: An obese female lying flat in bed. VITAL SIGNS: When seen by this author blood pressure 106/92, heart rate of 102 , respiratory rate 16, T-max in the emergency room 98.3, and O2 sat 96% on room air. HEENT: Oropharynx is clear and has dry mucous membranes. NECK: Non-elevated JVD. LUNGS: Difficult to auscultate. Clear anteriorly. HEART: Tachycardic rhythm. Regular rate. No murmurs. ABDOMEN: Soft, nontender, and nondistended. Positive bowel sounds. EXTREMITIES: Warm and well perfused without clubbing, cyanosis, or edema. She does have petechiae over her left dorsal wrist as well as her chest. notes they have been there for "a long time." Otherwise, no skin changes. NEUROLOGIC: She is nonverbal. She is moaning. Does not follow commands. Moves both arms on nonpurposeful matters. Eyes are equal, round, and reactive to light, 3 to 2 mm. DIAGNOSTIC STUDIES/LAB DATA: Labs reviewed notable for a sodium of 160, chloride of 131, BUN 29, creatinine 1.16, and lactic acid 1.4. Troponin I 0.01. CRP 86. TSH 1.6. INR 1.25. Platelets 62 and hemoglobin 10.7. Urine is positive for 3+ leukocyte esterase, 3+ white blood cells, red blood cells, and no bacteria. Data reviewed. EKG: Sinus tachycardia, unclear if this represents atrial flutter. Chest x-ray: No active disease. ASSESSMENT AND PLAN: A 71-year-old female with advanced dementia presenting with increasing lethargy and decreased p.o. intake, found with hypernatremia. 1. Hypernatremia: Free water deficit is approximately 6 L; however, correcting for 10 mEq over the next [address] her 24-hour deficit at approximately 3 mL/kg. I will give her 150 cc of D5 water with a maximum dose of 3 L before rechecking in the morning. Next BMP is approximately 15 hours from now prior to the receipt of total 3 L. Suspect in the setting of impaired access to free water. 2. Dementia, advanced and progressive: Discussed this with the patient's who offered prior to our discussion that he just wanted to keep her comfortable; however, also indicates he just wants to keep her around for as long as possible. We discussed how these sentiments are appropriate, but maybe in odds with each other. He had discussed hospice in the past, maybe appropriate during this hospital stay. Reassess. 3. Acute kidney injury, suspect in the setting of dehydration: Follow with receipt of D5. May need crystalloid replacement. 4. Thrombocytopenia with bleeding around gums: Unclear etiology at this time. No fevers or leukocytosis to suggest sepsis. Her urine has white blood cells ; however, absence of bacteria. I will give her a dose of ceftriaxone now. Continue to follow tomorrow. She is off Humira. We will hold methotrexate. Rheumatoid flares infrequently present with thrombocytopenia and more frequently the opposite of thrombocytosis. 5. Rheumatoid arthritis: Holding methotrexate on Friday, has already been discontinued from Humira. 6. Hypertension: Holding amlodipine. 7. DVT prophylaxis: Holding in the setting of bleeding in the setting of thrombocytopenia. 8. Code status: Full. CC: Dr. Best * [id number]/CPS #: [id number] [facility]
[2016-10-06] MEDS: D5W 1000 ML BAG* 1,000 ML IV SCH (03:25)
[2016-10-06] MEDS: Levothyroxine TAB* 25 MCG TAB PO SCH (04:43)
[2016-10-06 07:02] LABS: Hematocrit 29 % (35-47); Hemoglobin 9.1 g/dl (12.0-16.0); Mean Corpuscular HGB Conc 32 g/dl (31-36); Mean Corpuscular Hemoglobin 29 pg (27-31); Mean Corpuscular Volume 91 fL (80-97); Mean Platelet Volume 10 um3 (7.4-10.4); Red Cell Distribution Width 18 % (10.5-15)
[2016-10-06 07:53] LABS: Comments Flag Yes
[2016-10-06] MEDS ORDERED: Piperac/Tazob 3.375 gm in NS* 3.375 GM/100 ML BAG IVPB ONE (08:00)
[2016-10-06 08:08] LABS: Albumin 2.6 g/dL (3.2-5.2); BUN/Creatinine Ratio 26.7 (8-20); Calcium 8.5 mg/dL (8.6-10.3); Direct Bilirubin 0.3 mg/dL (0.03-0.18); EGFR African American 69.9 (>60); EGFR Non-African American 54.3 (>60); Globulin 3.4 g/dL (2-4); Indirect Bilirubin 0.7 mg/dL (0.3-1.0); Potassium 3.1 mmol/L (3.5-5.0)
[2016-10-06] MEDS ORDERED: D5W 1000 ML BAG* 1,000 ML IV SCH (08:41)
[2016-10-06] MEDS ORDERED: D5W KCl 40 MEQ 1000 ML* 1,000 ML IV SCH (10:00)
[2016-10-06] MEDS: Aspirin EC Low Dose* 81 MG TAB.EC PO SCH (10:02)
[2016-10-06] MEDS: Memantine TAB* 10 MG PO SCH ×2 (10:03→20:01)
[2016-10-06] MEDS: Cholecalciferol TAB* 1000 UNITS PO SCH (10:03)
[2016-10-06] MEDS: Donepezil TAB* 5 MG PO SCH (10:03)
--- NOTE | 2016-10-06 10:34 | PN ---
Subjective Date of Service: 10/06/16 Interval History: This is a 71 yo female with advanced dementia and frequent hospital admissions generally associated with urinary tract infections who was brought to the ER yesterday by her with AMS. Patient had little to nothing to eat over the last 3 days with increasing lethargy. Noted bleeding at her gums with oral care. Today, patient is alert. She is unable to swallow. Nursing reports that she holds the food, even soft substances in her mouth are held and eventually fall out. Objective Active Medications: Acetaminophen (Tylenol Tab*) 650 mg PO Q4H PRN PRN Reason: FEVER/PAIN Aspirin (Aspirin Ec Low Dose*) 81 mg PO DAILY [facility] Last Admin: 10/06/16 10:02 Dose: Not Given Cholecalciferol (Vitamin D Tab*) 1,000 units PO DAILY [facility] Last Admin: 10/06/16 10:03 Dose: Not Given Donepezil HCl (Aricept Tab*) 10 mg PO DAILY [facility] Last Admin: 10/06/16 10:03 Dose: Not Given Ceftriaxone Sodium 1 gm/ (Sodium Chloride) 50 mls @ 200 mls/hr IVPB 1600 [facility] Last Admin: 10/05/16 16:10 Dose: 200 mls/hr Piperacillin Sod/Tazobactam Sod (Zosyn 3.375 Gm In Ns Premix*) 3.375 gm in 100 mls @ 25 mls/hr IVPB Q8H [facility] Potassium Chloride/Dextrose (D5w 20 Meq Kcl 1000 Ml Bag*) 1,000 mls @ 200 mls/ hr IV PER RATE [facility] Levothyroxine Sodium (Synthroid Tab*) 25 mcg PO DAILY@0600 [facility] Last Admin: 10/06/16 04:43 Dose: Not Given Memantine (Namenda Tab*) 10 mg PO BID [facility] Last Admin: 10/06/16 10:03 Dose: Not Given Sertraline HCl (Zoloft*) 100 mg PO BEDTIME [facility] Last Admin: 10/05/16 20:12 Dose: Not Given Vital Signs: Temp Pulse Resp BP Pulse Ox 98.0 F 82 16 132/67 100 10/06/16 07:14 10/06/16 07:14 10/06/16 03:38 10/06/16 07:14 10/06/16 07:14 Appearance: Alert, no meaningful communication, occasionally smiles Respiratory: Symmetrical Chest Expansion and Respiratory Effort, Clear to Auscultation Cardiovascular: NL Sounds; No Murmurs; No JVD, RRR Abdominal: NL Sounds; No Tenderness; No Distention Skin: - - multiple areas of ecchymosis Result Diagrams: 10/06/16 06:53 10/06/16 06:53 Additional Lab and Data: . Microbiology and Other Data: Microbiology 10/05/16 14:55 Urine Culture - Preliminary Urine Proteus Mirabilis 10/05/16 14:45 Anaerobic Blood Culture - Preliminary Blood Venous Assess/Plan/Problems-Billing Assessment: This is a 71 yo female with a h/o of advanced dementia, RA, HTN, HLD, depression , morbid obesity, DVT within the last 6 months who developed a spontaneous gluteal hematoma with supratherapeutic INR now with IVC filter in place and maintained on Eliquis who presented with AMS and poor oral intake. She was admitted with severe hypernatremia and septicemia. - Patient Problems (1) Septicemia Comment: Secondary to UTI Urine is growing Proteus and blood cultures growing gram neg rods in 1/4 bottles Treat with Zosyn until sensitivities are available (2) Hypernatremia Comment: Likely due to severe volume depletion due to poor oral intake 160 mmol/L at admission, improved to 156 mmol/L over 18 hours Increase rate of D5W to 200 ml/h and continue to monitor BMP q4h with goal of Na correction of 10 mmol/24 hours (3) Thrombocytopenia Comment: Acute finding Perhaps due to DIC secondary to sepsis Anticoagulation held Sepsis being treated, will monitor closely (4) Hypokalemia Comment: Check Mg Replace with IVF (5) Acute renal failure Comment: Likely due to severe hypovolemia Improving with IVF (6) Dysphagia Comment: Patient does not demonstrate the ability to swallow at this time based on nursing assessment Will make NPO to avoid aspiration Request formal swallow eval tomorrow (7) Altered mental status Comment: Improving Likely combination of metabolic and toxic with severe hypernatremia and sepsis (8) Hx of deep venous thrombosis Comment: IVC filter placed 07/2016 Anticoagulation previously held in the setting of a spontaneous gluteal hematoma Has been treated with Eliquis up until yesterday Will hold Eliquis in the setting of thrombocytopenia (9) Rheumatoid arthritis Comment: Humira has been stopped by eating disorder specialist 09/19 Continued on methotrexate which will be held in the setting of acute infection (10) Morbid obesity Comment: BMI 36 (11) Full code status Comment: Will plan to readdress with patient's , he may be ready to consider a Palliative Care consult (12) DVT prophylaxis Comment: Held due to thrombocytopenia and spontaneous bleeding on exam
[2016-10-06 12:37] LABS: BUN/Creatinine Ratio 24.5 (8-20); Calcium 8.3 mg/dL (8.6-10.3); EGFR African American 69.1 (>60); EGFR Non-African American 53.7 (>60); Magnesium 2.1 mg/dL (1.9-2.7); Potassium 3.1 mmol/L (3.5-5.0)
[2016-10-06] MEDS: Piperac/Tazob 3.375 gm in NS* 3.375 GM/100 ML BAG IVPB SCH ×2 (13:59→20:01)
[2016-10-06] MEDS: KCL 10 MEQ/50 ML IVPREMIX* 10 MEQ/50 ML BAG IV SCH ×2 (15:48→17:30)
[2016-10-06] MEDS: D5W 20 MEQ KCL 1000 ML BAG* 1,000 ML IV SCH ×2 (16:42→22:46)
[2016-10-06 16:49] LABS: BUN/Creatinine Ratio 22.1 (8-20); Calcium 8.4 mg/dL (8.6-10.3); EGFR African American 67.6 (>60); EGFR Non-African American 52.5 (>60); Potassium 3.1 mmol/L (3.5-5.0)
[2016-10-06] MEDS: cefTRIAXone(*) 1 GM in NS 0.9% 50 ML* 50 ML IVPB SCH (17:34)
[2016-10-06] MEDS: Sertraline* 100 MG TAB PO SCH (20:01)
[2016-10-06 21:25] LABS: BUN/Creatinine Ratio 21.6 (8-20); Calcium 8.4 mg/dL (8.6-10.3); EGFR African American 69.1 (>60); EGFR Non-African American 53.7 (>60); Potassium 3.1 mmol/L (3.5-5.0)
[2016-10-07 02:32] LABS: BUN/Creatinine Ratio 21.2 (8-20); EGFR African American 71.5 (>60); EGFR Non-African American 55.6 (>60)
[2016-10-07] MEDS: Levothyroxine TAB* 25 MCG TAB PO SCH (04:03)
[2016-10-07] MEDS: D5W 20 MEQ KCL 1000 ML BAG* 1,000 ML IV SCH (04:24)
[2016-10-07] MEDS: Piperac/Tazob 3.375 gm in NS* 3.375 GM/100 ML BAG IVPB SCH ×4 (04:24→22:29)
[2016-10-07 06:08] LABS: Calcium 7.5 mg/dL (8.6-10.3); EGFR African American 70.7 (>60); Potassium 3.1 mmol/L (3.5-5.0)
[2016-10-07] MEDS: KCL 10 MEQ/50 ML IVPREMIX* 10 MEQ/50 ML BAG IV SCH ×3 (08:43→12:59)
[2016-10-07] MEDS: Memantine TAB* 10 MG PO SCH ×2 (09:47→20:45)
[2016-10-07] MEDS: Aspirin EC Low Dose* 81 MG TAB.EC PO SCH (09:47)
[2016-10-07] MEDS: Cholecalciferol TAB* 1000 UNITS PO SCH (09:47)
[2016-10-07] MEDS: Donepezil TAB* 5 MG PO SCH (09:47)
[2016-10-07 09:55] LABS: Hematocrit 25 % (35-47); Hemoglobin 8.3 g/dl (12.0-16.0); Mean Corpuscular HGB Conc 33 g/dl (31-36); Mean Corpuscular Hemoglobin 29 pg (27-31); Mean Corpuscular Volume 89 fL (80-97); Mean Platelet Volume 11 um3 (7.4-10.4); Red Blood Count 2.85 10^6/ul (4.0-5.4); Red Cell Distribution Width 18 % (10.5-15)
[2016-10-07 10:04] LABS: Comments Flag Yes
[2016-10-07 10:05] LABS: White Blood Count 3.1 10^3/ul (3.5-10.8)
[2016-10-07 10:13] LABS: Calcium 7.8 mg/dL (8.6-10.3); EGFR Non-African American 58.3 (>60); Magnesium 1.9 mg/dL (1.9-2.7); Potassium 3.3 mmol/L (3.5-5.0)
[2016-10-07] MEDS ORDERED: D5W 20 MEQ KCL 1000 ML BAG* 1,000 ML IV SCH (11:26)
--- NOTE | 2016-10-07 11:49 | PN ---
Subjective Date of Service: 10/07/16 Interval History: Patient continues to be intermittently alert, but non-communicative. She unfortunately failed her swallow evaluation this am. Remains afebrile, normotensive. No new concerns. Objective Active Medications: Acetaminophen (Tylenol Tab*) 650 mg PO Q4H PRN PRN Reason: FEVER/PAIN Aspirin (Aspirin Ec Low Dose*) 81 mg PO DAILY [facility] Last Admin: 10/07/16 09:47 Dose: Not Given Cholecalciferol (Vitamin D Tab*) 1,000 units PO DAILY [facility] Last Admin: 10/07/16 09:47 Dose: Not Given Donepezil HCl (Aricept Tab*) 10 mg PO DAILY [facility] Last Admin: 10/07/16 09:47 Dose: Not Given Piperacillin Sod/Tazobactam Sod (Zosyn 3.375 Gm In Ns Premix*) 3.375 gm in 100 mls @ 200 mls/hr IVPB 0430,1030,1630,2230 [facility] Last Admin: 10/07/16 10:51 Dose: 200 mls/hr Potassium Chloride/Dextrose (D5w 20 Meq Kcl 1000 Ml Bag*) 1,000 mls @ 125 mls/ hr IV PER RATE [facility] Levothyroxine Sodium (Synthroid Tab*) 25 mcg PO DAILY@0600 [facility] Last Admin: 10/07/16 04:03 Dose: Not Given Memantine (Namenda Tab*) 10 mg PO BID [facility] Last Admin: 10/07/16 09:47 Dose: Not Given Pantoprazole Sodium (Protonix Iv*) 40 mg IV Q24H [facility] Sertraline HCl (Zoloft*) 100 mg PO BEDTIME [facility] Last Admin: 10/06/16 20:01 Dose: Not Given Vital Signs: Temp Pulse Resp BP Pulse Ox 97.1 F 76 18 125/56 100 10/07/16 07:19 10/07/16 07:19 10/07/16 08:00 10/07/16 07:19 10/07/16 07:19 Appearance: Opens her eyes to voice and smiles weakly. Some babbling, no communication. Respiratory: Symmetrical Chest Expansion and Respiratory Effort, Clear to Auscultation, - - limited exam due to body habitus and patient cooperation Cardiovascular: RRR Abdominal: NL Sounds; No Tenderness; No Distention Extremities: - - trace edema Skin: - - multiple areas of ecchymosis Result Diagrams: 10/07/16 09:30 10/07/16 09:30 Additional Lab and Data: . Microbiology and Other Data: Microbiology 10/05/16 14:55 Urine Culture - Preliminary Urine Proteus Mirabilis 10/05/16 14:45 Aerobic Blood Culture - Preliminary Blood Venous No Growth Day 1 Anaerobic Blood Culture - Preliminary Proteus Mirabilis Blood Culture - Final 10/05/16 13:10 Aerobic Blood Culture - Preliminary Blood Venous No Growth Day 1 Anaerobic Blood Culture - Preliminary No Growth Day 1 Assess/Plan/Problems-Billing Assessment: This is a 71 yo female with a h/o of advanced dementia, RA, HTN, HLD, depression , morbid obesity, DVT within the last 6 months who developed a spontaneous gluteal hematoma with supratherapeutic INR now with IVC filter in place and maintained on Eliquis who presented with AMS and poor oral intake. She was admitted with severe hypernatremia and septicemia. - Patient Problems (1) Septicemia Comment: Secondary to UTI Urine and blood cultures are growing Proteus Treating with Zosyn until sensitivities are available Appreciate ID consult Renal US pending to eval for hydro as she has had obstrucitve uropathy in the past Repeat blood cultures were drawn this am and pending (2) Hypernatremia Comment: Likely due to severe volume depletion due to poor oral intake 160 mmol/L at admission, improved to 143 mmol/L (~12mmol/L/24 hours) this am If repeat labs later this afternoon, will decrease D5W to maintainence rate and can likely change to NS or LR tomorrow (3) Thrombocytopenia Comment: Acute finding and now appears more of a pancytopenia Perhaps due to acute illness Platlets are stable No obvious signs of bleeding and drop in Hgb is likely dilutional, but will empirically start IV Protonix and check stool for blood (4) Hypokalemia Comment: Continue to supplement IV (5) Acute renal failure Comment: Likely due to severe hypovolemia Improved with IVF (6) Dysphagia Comment: Patient has failed her swallow evaluation this am, she was unable to participate It sounds like her nutrition has been poor at home for some time Some of it may be due to her acute metabolic derrangements and acute infection Will plan to check prealbumin and discuss nutrition needs in more detail with her when he arrives this afternoon Could consider NG tube for nutrition temporarily and re-attempt swallow eval in 2-3 days (7) Altered mental status Comment: Improving Likely combination of metabolic and toxic with severe hypernatremia and sepsis (8) Hx of deep venous thrombosis Comment: IVC filter placed 07/2016 Anticoagulation previously held in the setting of a spontaneous gluteal hematoma Has been treated with Eliquis up until yesterday Will hold Eliquis in the setting of thrombocytopenia (9) Rheumatoid arthritis Comment: Humira has been stopped by licensed weigher 09/19 Continued on methotrexate which will be held in the setting of acute infection (10) Morbid obesity Comment: BMI 36 (11) Full code status Comment: Will plan to readdress with patient's , he may be ready to consider a Palliative Care consult (12) DVT prophylaxis Comment: Held due to thrombocytopenia and spontaneous bleeding on exam Status and Disposition: Patient requires continued inpatient care. Anticipated several additional inpatient days and will plan to discuss nutritional needs and code status with her this afternoon.
[2016-10-07] MEDS: Pantoprazole IV* 40 MG IV SCH (11:52)
--- NOTE | 2016-10-07 12:17 | RAD ---
Evaluate for renal obstruction. Real-time sonography of the kidneys was performed. The right kidney measures 12.0 x 4.5 x 4.5 cm with no hydronephrosis. The left kidney measures 11.3 x 4.6 x 4.6 cm with a cyst in the upper pole of the left kidney measuring 15 x 11 x 12 mm. Echogenic focus is noted in the lower pole of the left kidney measuring 5 mm which may represent a calculi. IMPRESSION: No hydronephrosis of either kidney is noted. Calculi is noted in the lower pole of the left kidney without obstruction.
[2016-10-07 16:25] LABS: BUN/Creatinine Ratio 18.9 (8-20); EGFR African American 79.8 (>60); EGFR Non-African American 62.1 (>60); Potassium 3.4 mmol/L (3.5-5.0)
--- NOTE | 2016-10-07 16:57 | PN ---
Hospitalist Progress Note Spoke with patient's this afternoon regarding code status and nutritional status: 1. Nutrition: Prealbumin 8, noted 26kg weight loss in the last year and 6kg in the last month. She failed her swallow evaluation this am, some of this may be due to her resolving encephalopathy. From discussion with her , he has been struggling with maintaining good oral intake at home for some time. He has been working with speech therapy on different techniques to aid her. Based on the above criteria and her NPO status now for 3 days prior to admission and day 2 here in the hospital, she meets criteria for severe protein calorie malnutrition and obviously requires additional nutritional support. Her agrees to enteral feedings via NG tube. Will plan to readress her ability to swallow as her mental status improves. Briefly discussed PEG tube v. comfort feeding if she continues to fail swallow evaluations. Did emphasize that an NG tube is not a retirement option to provide nutrition. 2. Code Status: Patient's reconfirmed his desire for her to remain FULL CODE. Had a through discussion regarding survival rates and implications of resuscitation and mechanical ventilation.
[2016-10-07] MEDS ORDERED: POTASSIUM CHLORIDE IVPB SCH (17:00)
[2016-10-07] MEDS ORDERED: D5W IVPB SCH (17:00)
[2016-10-07] MEDS: D5W IVPB SCH ×2 (17:04→23:24)
[2016-10-07] MEDS: POTASSIUM CHLORIDE IVPB SCH ×2 (17:04→23:24)
--- NOTE | 2016-10-07 17:33 | PN ---
Hospitalist Progress Note Noted Na increased from 142 to 145 mmol/L after fluid rate was decreased to 125 ml/h. Increased rate up to 175 ml/h and continuing to monitor serial BMPs.
--- NOTE | 2016-10-07 19:42 | CONS ---
CONSULTATION REPORT: DATE OF CONSULT: 10/07/16 REQUESTING PROVIDER: WOLF Georges CONSULTING SERVICE: Infectious Disease. REASON FOR CONSULT: Proteus urinary tract infection and bacteremia. IMPRESSION: 1. Admitted with encephalopathy, which was present on admission, found to have proteus in urine culture, greater than 100,000 colonies in 1/4 blood culture bottles. Urinalysis showed blood and white cells. She does have a history of nephrolithiasis and ureteral stenting questioning component of obstructive uropathy or significant stone disease. 2. Thrombocytopenia. 3. Alzheimer's dementia. 4. Hypernatremia. RECOMMENDATION: 1. Agree with Zosyn 3.375 g IV every 8 hours by extended infusion while awaiting sensitivity data, hopefully be able to narrow to an oral antibiotic for the duration of therapy. 2. Renal ultrasound. HISTORY OF PRESENT ILLNESS: This is a 71-year-old woman with dementia, rheumatoid arthritis, history of urinary tract infection, admitted with encephalopathy, found to be due to proteus cystitis and bacteremia. She was brought to the hospital by her when she was found to be less interactive and not able to do her usual daily activities and less communicative. She cannot provide any history given this mental status change, which was obtained instead from a discussion with WOLF Georges, and review of the medical record. Blood and urine cultures were sent once she got here. She was started on Zosyn this morning, she was started on ceftriaxone last night. She has been afebrile since she had been here. She denies pain and the nurses note no pain with moving or cleaning her up this morning. Chest x -ray on admission showed no active disease. PAST MEDICAL HISTORY: 1. Alzheimer's dementia. 2. Rheumatoid arthritis, on methotrexate. 3. Hypertension. 4. Hyperlipidemia. 5. Hypothyroidism. 6. Depression. 7. History of urinary tract infection. 8. Nephrolithiasis with a history of hydronephrosis and ureteral stent placement. 9. Obesity. 10. History of DVT, on Coumadin, IVC filter, now on Eliquis. MEDICATIONS: 1. Tylenol. 2. Aspirin. 3. Cholecalciferol. 4. Levothyroxine. 5. Namenda. 6. Sertraline. 7. Zosyn. ALLERGIES: ERYTHROMYCIN, QUININE, SCOPOLAMINE, BACTRIM. FAMILY HISTORY: No recurrent infections. SOCIAL HISTORY: Lives with her . REVIEW OF SYSTEMS: Unobtainable given mental status. PHYSICAL EXAM: Vital Signs: Temperature is 36.2, heart rate 70, respiratory rate 17, blood pressure 120/50, and O2 sat 100% on room air. General: She does not appear to be in distress, she is not diaphoretic. Neurologically, she awakens to touch, she answers some questions, does not follow commands. There is no lower extremity clonus bilaterally. HEENT: There is no conjunctival hemorrhage. Oropharynx without lesions. Neck: Neck is supple without nuchal rigidity. Lymph Nodes: There is no cervical, supraclavicular, inguinal, axillary, or epitrochlear lymphadenopathy. Heart: Regular and tachycardic without murmurs. Lungs: Decreased breath sounds at the bases bilaterally without wheezes, rales, or rhonchi. Abdomen: Soft, nontender. There are normal bowel sounds present. There is no flank tenderness to palpation. No suprapubic tenderness. Skin: There are nonblanching erythematous macules on the bilateral upper extremities. No other rash. There are no splinter hemorrhages. LABORATORY DATA: White blood cell count 4, hemoglobin 9, platelets 53. Creatinine 1.0, BUN 20. Please see impressions and recommendations as outlined above, which I have discussed with WOLF Georges. Thanks for asking me to see Ms. Truner in consultation. [id number]/CPS #: [id number] [facility]
[2016-10-07] MEDS: Sertraline* 100 MG TAB PO SCH (20:45)
[2016-10-07 22:10] LABS: BUN/Creatinine Ratio 17.2 (8-20); Calcium 8.1 mg/dL (8.6-10.3); EGFR African American 76.9 (>60); EGFR Non-African American 59.8 (>60)
[2016-10-07 22:15] LABS: Potassium 3.9 mmol/L (3.5-5.0)
[2016-10-08] MEDS: Piperac/Tazob 3.375 gm in NS* 3.375 GM/100 ML BAG IVPB SCH (04:16)
[2016-10-08] MEDS: Levothyroxine TAB* 25 MCG TAB PO SCH (04:31)
[2016-10-08] MEDS: D5W IVPB SCH (05:46)
[2016-10-08] MEDS: POTASSIUM CHLORIDE IVPB SCH (05:46)
[2016-10-08 07:16] LABS: Comments Flag Yes; Hematocrit 25 % (35-47); Hemoglobin 8.1 g/dl (12.0-16.0); Mean Corpuscular HGB Conc 33 g/dl (31-36); Mean Corpuscular Hemoglobin 29 pg (27-31); Mean Corpuscular Volume 88 fL (80-97); Mean Platelet Volume 11 um3 (7.4-10.4); Red Blood Count 2.79 10^6/ul (4.0-5.4); Red Cell Distribution Width 18 % (10.5-15); White Blood Count 1.9 10^3/ul (3.5-10.8)
[2016-10-08 07:22] LABS: Add Diff/Slide Review? Slide Review Added
[2016-10-08 07:30] LABS: BUN/Creatinine Ratio 14.3 (8-20); Calcium 7.9 mg/dL (8.6-10.3); EGFR African American 78.8 (>60); EGFR Non-African American 61.3 (>60); Magnesium 1.8 mg/dL (1.9-2.7); Potassium 3.6 mmol/L (3.5-5.0)
[2016-10-08] MEDS: Cholecalciferol TAB* 1000 UNITS PO SCH (09:47)
[2016-10-08] MEDS: Aspirin EC Low Dose* 81 MG TAB.EC PO SCH (09:47)
[2016-10-08] MEDS: Memantine TAB* 10 MG PO SCH (09:47)
[2016-10-08] MEDS: Donepezil TAB* 5 MG PO SCH (09:47)
--- NOTE | 2016-10-08 09:49 | PN ---
Subjective Date of Service: 10/08/16 Interval History: pt opens eye to voice but no verbal response. Pt resting in NAD Spoke with and he is agreeable to a palliative consult. Objective Active Medications: Acetaminophen (Tylenol Tab*) 650 mg PO Q4H PRN PRN Reason: FEVER/PAIN Aspirin (Aspirin Ec Low Dose*) 81 mg PO DAILY [facility] Last Admin: 10/07/16 09:47 Dose: Not Given Cholecalciferol (Vitamin D Tab*) 1,000 units PO DAILY [facility] Last Admin: 10/07/16 09:47 Dose: Not Given Donepezil HCl (Aricept Tab*) 10 mg PO DAILY [facility] Last Admin: 10/07/16 09:47 Dose: Not Given Potassium Chloride 20 meq/ (Dextrose) 1,010 mls @ 175 mls/hr IVPB Q6H [facility] Last Admin: 10/08/16 05:46 Dose: 175 mls/hr Cefepime HCl 1 gm/ Sodium (Chloride) 50 mls @ 100 mls/hr IVPB Q12H [facility] Last Admin: 10/08/16 09:38 Dose: 100 mls/hr Levothyroxine Sodium (Synthroid Tab*) 25 mcg PO DAILY@0600 [facility] Last Admin: 10/08/16 04:31 Dose: Not Given Memantine (Namenda Tab*) 10 mg PO BID [facility] Last Admin: 10/07/16 20:45 Dose: Not Given Pantoprazole Sodium (Protonix Iv*) 40 mg IV Q24H [facility] Last Admin: 10/07/16 11:52 Dose: 40 mg Sertraline HCl (Zoloft*) 100 mg PO BEDTIME [facility] Last Admin: 10/07/16 20:45 Dose: Not Given Vital Signs 10/07/16 10/07/16 10/07/16 15:33 20:00 23:48 Temperature 98.5 F 97.6 F Pulse Rate 75 139 Respiratory 16 16 16 Rate Blood Pressure 103/27 (mmHg) O2 Sat by Pulse 100 86 Oximetry 10/08/16 10/08/16 10/08/16 00:00 00:18 07:28 Temperature 97.9 F Pulse Rate 70 70 74 Respiratory 17 Rate Blood Pressure 92/59 93/59 145/83 (mmHg) O2 Sat by Pulse 100 98 100 Oximetry 10/08/16 10/08/16 08:00 08:30 Temperature 97.4 F Pulse Rate 70 Respiratory 18 18 Rate Blood Pressure 125/60 (mmHg) O2 Sat by Pulse 98 Oximetry Oxygen Devices in Use Now: None Appearance: obese female laying in a chair alert in NAD - no verbal response, does not follow commands Eyes: No Scleral Icterus, PERRLA Ears/Nose/Mouth/Throat: NL Teeth, Lips, Gums, Mucous Membranes Moist Neck: NL Appearance and Movements; NL JVP Respiratory: Symmetrical Chest Expansion and Respiratory Effort, Clear to Auscultation Cardiovascular: NL Sounds; No Murmurs; No JVD, RRR, No Edema Abdominal: NL Sounds; No Tenderness; No Distention Extremities: No Edema, No Clubbing, Cyanosis Skin: No Rash or Ulcers, No Nodules or Sclerosis Neurological: - - alert in NAD - does not follow commands, no verbal response Lines/Tubes/Other Access: Clean, Dry and Intact Peripheral IV Nutrition: - - NPO Result Diagrams: 10/08/16 06:43 10/08/16 06:43 Additional Lab and Data: . Microbiology and Other Data: Microbiology 10/05/16 14:55 Urine Culture - Preliminary Urine Proteus Mirabilis 10/05/16 14:45 Aerobic Blood Culture - Preliminary Blood Venous No Growth Day 1 Anaerobic Blood Culture - Preliminary Proteus Mirabilis Blood Culture - Final 10/05/16 13:10 Aerobic Blood Culture - Preliminary Blood Venous No Growth Day 1 Anaerobic Blood Culture - Preliminary No Growth Day 1 Assess/Plan/Problems-Billing Assessment: This is a 71 yo female with a h/o of multiple recent hospitalizations, advanced dementia, RA, HTN, HLD, depression, morbid obesity, DVT within the last 6 months who developed a spontaneous gluteal hematoma with supratherapeutic INR now with IVC filter in place and maintained on Eliquis who presented with AMS and poor oral intake. She was admitted with severe hypernatremia and septicemia. - Patient Problems (1) Septicemia Comment: Secondary to UTI Urine and blood cultures are growing Proteus Appreciate ID consult - continue cefepime Renal US showing no hydro or obstruction Repeat blood cultures negative day 1 (2) Hypernatremia Comment: Likely due to severe volume depletion due to poor oral intake 160 mmol/L at admission, resolved with D5W - switch to NS @ 100 ml/r (3) Severe protein-calorie malnutrition Comment: Nutrition has been poor for sometime with decrese in PO intake over the past year. She has had a 26kg weight loss in the last year with 6kg in the past month. Pre-albumin 8. Plan for palliative consult (4) Dysphagia Comment: Improvement in swallowing exam per speech but reports she still failed and recommends NPO status. (5) Thrombocytopenia Comment: Acute finding and now with pancytopenia suspect secondary to acute illness (ID recommends continuing abx) Platlets are stable No obvious signs of bleeding and drop in Hgb is likely dilutional IV Protonix and check stool for blood (6) Morbid obesity Comment: BMI 36 (7) Acute renal failure Comment: Likely due to severe hypovolemia Resolved with IVF (8) Altered mental status Comment: Improving Likely combination of metabolic and toxic with severe hypernatremia and sepsis (9) Hx of deep venous thrombosis Comment: IVC filter placed 07/2016 Anticoagulation previously held in the setting of a spontaneous gluteal hematoma Has been treated with Eliquis up until 10/06/16 and was held per pcp for bleeding gums Will hold Eliquis in the setting of thrombocytopenia (10) Hypernatremia Comment: - Resolved suspect dehydration due to poor PO intake. -DC IVFs (11) DVT prophylaxis Comment: Held due to thrombocytopenia and spontaneous bleeding on exam (12) Full code status Comment: Will plan to readdress with patient's with plan for Palliative Care consult today Status and Disposition: Patient requires continued inpatient care. Anticipated several additional inpatient days and will plan for palliative consult
[2016-10-08] MEDS ORDERED: Cefepime(*) 1 GM in NS 0.9% 50 ML* 50 ML IVPB SCH (10:00)
[2016-10-08] MEDS ORDERED: D5W IVPB SCH (10:19)
[2016-10-08] MEDS ORDERED: POTASSIUM CHLORIDE IVPB SCH (10:19)
[2016-10-08] MEDS ORDERED: NS 0.9% 1000 ML* 1,000 ML IV SCH (10:30)
[2016-10-08] MEDS ORDERED: Magnesium Sulfate 2 GM IV* 2 GM/50 ML BAG IVPB ONE (10:30)
[2016-10-08] MEDS: Pantoprazole IV* 40 MG IV SCH (12:24)
--- NOTE | 2016-10-08 14:20 | PN ---
Progress Note - Progress Note SOAP: Subjective: DOS: 10/08/16 CC: encephalopathy HPI: 71 yo woman with dementia admitted with decline in mental status. Had Proteus UTI and bacteremia. Some improvement in MS. No fever or diarrhea per RN. Objective: [] Vital Signs Temp 36.3 C 10/08/16 08:30 Pulse 70 10/08/16 08:30 Resp 18 10/08/16 08:30 BP 125/60 10/08/16 08:30 Pulse Ox 98 10/08/16 08:30 Intake & Output 10/07/16 10/08/16 10/08/16 18:59 06:59 18:59 Intake Total 1644 2211 0 Output Total 450 1175 1150 Balance 1194 1036 -1150 Intake: IV Fluids 1644 1949 10 meq K 56 D5W NS 20 meq KCL 1536 1949 zosyn 52 IVPB 262 zosyn 262 Oral 0 0 0 Output: Urine 550 Lake 450 1175 600 Other: Estimated Void Large Large # Bowel Movements 1 1 1 Estimated Stool Amount Medium Large Medium Gen:no distress Neuro: awkanes to touch, does not follow commands or answer questions HEENT:PERRL, MMM Neck:Supple Heart:RRR no murmur Lungs:CTA BL Abd:+BS NTND soft Skin: no rash MSK: no joint synovitis Laboratory Results - last 24 hr 10/07/16 10/07/16 10/08/16 15:40 21:17 06:43 WBC 1.9 L RBC 2.79 L Hgb 8.1 L Hct 25 L MCV 88 MCH 29 MCHC 33 RDW 18 H Plt Count 43 L MPV 11 H Neut % (Auto) 33.8 L Lymph % (Auto) 50.3 H [place] % (Auto) 3.6 Eos % (Auto) 11.6 H Baso % (Auto) 0.7 Absolute Neuts (auto) 0.6 L* Absolute Lymphs (auto) 0.9 L Absolute Monos (auto) 0.1 Absolute Eos (auto) 0.2 Absolute Basos (auto) 0 Absolute Nucleated RBC 0 Nucleated RBC % 0.1 Hem Pathologist Commnt Sodium 145 140 Potassium 3.4 L 3.9 Chloride 116 H 116 H Carbon Dioxide 23 18 L Anion Gap 6 6 BUN 17 16 Creatinine 0.90 0.93 Est GFR ( Amer) 79.8 76.9 Est GFR (Non-Af Amer) 62.1 59.8 BUN/Creatinine Ratio 18.9 17.2 Glucose 85 99 Calcium 8.0 L 8.1 L Magnesium 10/08/16 06:43 WBC RBC Hgb Hct MCV MCH MCHC RDW Plt Count MPV Neut % (Auto) Lymph % (Auto) [place] % (Auto) Eos % (Auto) Baso % (Auto) Absolute Neuts (auto) Absolute Lymphs (auto) Absolute Monos (auto) Absolute Eos (auto) Absolute Basos (auto) Absolute Nucleated RBC Nucleated RBC % Hem Pathologist Commnt Sodium 141 Potassium 3.6 Chloride 113 H Carbon Dioxide 23 Anion Gap 5 BUN 13 Creatinine 0.91 Est GFR ( Amer) 78.8 Est GFR (Non-Af Amer) 61.3 BUN/Creatinine Ratio 14.3 Glucose 113 H Calcium 7.9 L Magnesium 1.8 L Assessment: 1. Encephalopathy present on admission 2. Proteus UTI and bacteremia, cleared 3. dementia 4. pancytopenia Plan: 1. change abx to bactrim DS daily for 10 more days to treat urinary tract infection (ordered)
[2016-10-08] MEDS ORDERED: Sulfamethox/Trimethoprim DS 800/160* TAB PO SCH (15:00)
--- NOTE | 2016-10-08 19:38 | CONS ---
PALLIATIVE CARE CONSULTATION REPORT: DATE OF CONSULTATION: 10/08/16 PRIMARY CARE PHYSICIAN: Marcela Best MD. REQUESTING PHYSICIAN FOR CONSULTATION: WOLF Georges. HISTORY OF PRESENT ILLNESS: This is a 71-year-old female with a past medical history of advanced Alzheimer's dementia and rheumatoid arthritis with recurrent admissions for recurrent urinary tract infections with obstructive uropathy as well who presented to the emergency room on 10/05/16 for increase in lethargy. The brought her into the emergency room, he cares for her at home. She is dependent on all of her ADLs. On admission, she was noted to be hypernatremic with acute kidney injury and thrombocytopenic. The patient was also noted to have a urinary tract infection and bacteremic secondary to this. On admission, her sodium was 160; with IV fluids that is improved to 141. On admission, her platelets were 62, it is continuing to downtrend, now she is pancytopenic and neutropenic as well. The patient was seen by Infectious Disease, they recommended continuing her on cefepime and renal ultrasound was unremarkable. Throughout the patient's hospital course, she has been minimally alert. She is nonverbal. She has a Brianne lift and she has had no interest in eating any food. Speech therapy has been following her daily and concerned about her safety and her swallow evaluation. She did take a few bites today as today was her most alert. However, they still feel that it is not safe for her to eat. The is not at the bedside at this time and I have not been able to reach him by phone. I am hoping to reach touch base with him later today but per the hospitalist staff, the patient's is interested in a feeding tube and is hesitant to change her advance directives. As it stands right now, she is a full code. The patient is nonverbal on my encounter. She moans and turns her head but does not open her eyes and unable to follow commands or answer any questions on verbal and tactile stimuli, unable to obtain review of systems. PAST MEDICAL HISTORY: 1. Advanced Alzheimer's dementia. 2. Hypertension. 3. Hyperlipidemia. 4. Rheumatoid arthritis, on Humira and methotrexate. 5. Hypothyroidism. 6. Depression. 7. Recurrent hospitalizations for recurrent urinary tract infection with history of obstructive uropathy and history of stent placement with Dr. Muhammad. 8. Morbid obesity. 9. History of DVT, on admission was on apixaban, is currently off anticoagulation. This is her fifth admission since May 2016. INPATIENT MEDICATIONS: 1. Tylenol 650 mg every 4 hours as needed. 2. Aspirin 81 mg daily. 3. Cholecalciferol 1000 units daily. 4. Donepezil 10 mg daily. 5. Vitamin D 25 mcg daily. 6. Cefepime 1 g q.12 hours. 7. Namenda 10 mg p.o. b.i.d. 8. Normal saline 100 cc an hour. 9. Pantoprazole 40 mg IV q.24. 10. Sertraline 100 mg p.o. at bedtime. ALLERGIES: LATEX, QUININE, SCOPOLAMINE, ERYTHROMYCIN, and BACTRIM. FAMILY HISTORY: Reviewed and noncontributory. SOCIAL HISTORY: As mentioned. The patient is nonverbal, nonambulatory, has a Brianne lift. She lives at home with her who cares for her 03/03 and she is completely dependent on all of her ADLs. No history of tobacco, alcohol, or illicit drug use. Her MOLST form is a full code as advanced. REVIEW OF SYSTEMS: Unable to obtain. PHYSICAL EXAMINATION: GENERAL: In no acute distress. The patient is somnolent and minimally arousable to tactile stimuli. VITAL SIGNS: Temp 97.4, pulse rate 70, respiratory rate is 18, oxygen saturation 98% on room air, blood pressure is 125/60. HEENT: Neck supple. No lymphadenopathy. Oropharynx, mucous membranes are dry. Pupils are equal and reactive, anicteric. Head: Normocephalic. RESPIRATORY: Poor respiratory effort. No wheezing, rhonchi, or rales. CARDIAC: Regular rate and rhythm. Soft systolic murmur. ABDOMEN: Obese abdomen, soft, nondistended, nontender. EXTREMITIES: +1 pretibial nonpitting edema. The patient is nonverbal and unable to follow any commands. Did not observe any spontaneous gross motor movement. LABORATORY DATA: White count 1.9, hemoglobin 8.1, hematocrit 25, platelets 43. INR 1.25. Sodium 141, potassium 3.6, chloride 113, bicarb 23, BUN 13, creatinine 0.91, glucose 113. The patient's urine culture positive for proteus mirabilis and her blood culture positive for proteus mirabilis on 10/05/16. Subsequent blood cultures have been negative. ASSESSMENT AND RECOMMENDATION: This is a 71-year-old unfortunate individual with advanced Alzheimer's dementia who presents for recurrent episodes of lethargy, found to have urinary tract infection and bacteremia. Now she has pancytopenia. Also on admission, she presented with severe hypernatremia secondary to volume depletion. This seems to be end-stage Alzheimer's dementia with no success and reversibility of her dementia. I have not had a chance to speak with her but the patient is appropriate and eligible for hospice with a limited life expectancy with a terminal diagnosis of advanced Alzheimer' s dementia. I will follow up with him and talk to him more about advanced care planning and I will follow up with you. Thank you for this consultation. ADDENDUM: Met with and 's sister at great length regarding poor prognosis. very tearful. He wants her to be comfortable and have more support at home. Understands that feeding tube does not reverse her underlying diagnosis and if she gets to that point that she will unlikely do what she was able to do such as read and watch tv. He enjoyed being about to watch tv with her. If her quality of life has diminished then he wants her comfortable. He is not yet ready to change his advanced directives but seems very clear in his goals of care. Will follow up with him again. TIME SPENT: Greater than 60 minutes was spent doing the consultation, more than half the time was spent in direct patient contact. CC: Marcela Best MD * [id number]/SKINNY #: [id number] ROSENDO
[2016-10-08] MEDS: Cefepime(*) 2 GM in NS 0.9% 50 ML* 50 ML IVPB SCH (21:42)
[2016-10-08] MEDS: Sertraline* 100 MG TAB PO SCH (21:42)
[2016-10-09] MEDS: Levothyroxine TAB* 25 MCG TAB PO SCH (06:11)
[2016-10-09 08:53] VITALS: BP 122/62
[2016-10-09] MEDS: Cefepime(*) 2 GM in NS 0.9% 50 ML* 50 ML IVPB SCH (09:43)
[2016-10-09] MEDS: Cholecalciferol TAB* 1000 UNITS PO SCH (09:44)
--- NOTE | 2016-10-09 10:35 | PN ---
Progress Note - Progress Note Note: Palliative care Follow up - Bette spoke with after my encounter and he decided that he would like to take her home with hospice and MOLST form has been updated to reflect comfort measures. Patient appears sleeping and comfortable. Plans for discharge to home with hospice with terminal diagnosis of end stage dementia.
--- NOTE | 2016-10-09 11:26 | PN ---
Subjective Date of Service: 10/09/16 Interval History: Patient is alert, non-responsive. Per has been sleeping on and off in [facility]. met with Hospice Nurse, plan to have Hosice intake in home tomorrow or friday. Objective Active Medications: Acetaminophen (Tylenol Tab*) 650 mg PO Q4H PRN PRN Reason: FEVER/PAIN Cholecalciferol (Vitamin D Tab*) 1,000 units PO DAILY [facility] Last Admin: 10/09/16 09:44 Dose: Not Given Heparin Sodium (Porcine) (Heparin Flush Picc/Ml/Cvc(*)) 1 ml FLUSH 0600,1800 [facility] PRN Reason: Protocol Levothyroxine Sodium (Synthroid Tab*) 25 mcg PO DAILY@0600 [facility] Last Admin: 10/09/16 06:11 Dose: Not Given Morphine Sulfate (Morphine Inj (Syringe)*) 2 mg IV Q4H PRN PRN Reason: PAIN - MILD Sertraline HCl (Zoloft*) 100 mg PO BEDTIME [facility] Last Admin: 10/08/16 21:42 Dose: Not Given Vital Signs 10/08/16 10/08/16 10/08/16 15:31 20:00 23:49 Temperature 97.6 F 97.5 F Pulse Rate 81 81 Respiratory 16 16 16 Rate Blood Pressure 139/124 125/55 (mmHg) O2 Sat by Pulse 100 100 Oximetry 10/09/16 10/09/16 10/09/16 08:00 08:38 10:01 Temperature 98.6 F Pulse Rate 187 75 Respiratory 20 20 Rate Blood Pressure 122/62 (mmHg) O2 Sat by Pulse 97 Oximetry Oxygen Devices in Use Now: None Appearance: obese female laying in bed in [facility]. alert, nonverbal Eyes: No Scleral Icterus, PERRLA Neck: NL Appearance and Movements; NL JVP Respiratory: Symmetrical Chest Expansion and Respiratory Effort, Clear to Auscultation Cardiovascular: NL Sounds; No Murmurs; No JVD, RRR, No Edema Abdominal: NL Sounds; No Tenderness; No Distention Extremities: No Edema, No Clubbing, Cyanosis Skin: No Rash or Ulcers, No Nodules or Sclerosis Neurological: - - alert Lines/Tubes/Other Access: Clean, Dry and Intact Peripheral IV Nutrition: Taking PO's Result Diagrams: 10/08/16 06:43 10/08/16 06:43 Additional Lab and Data: . Microbiology and Other Data: Microbiology 10/05/16 14:55 Urine Culture - Preliminary Urine Proteus Mirabilis 10/05/16 14:45 Aerobic Blood Culture - Preliminary Blood Venous No Growth Day 1 Anaerobic Blood Culture - Preliminary Proteus Mirabilis Blood Culture - Final 10/05/16 13:10 Aerobic Blood Culture - Preliminary Blood Venous No Growth Day 1 Anaerobic Blood Culture - Preliminary No Growth Day 1 Assess/Plan/Problems-Billing Assessment: This is a 71 yo female with a h/o of multiple recent hospitalizations, advanced dementia, RA, HTN, HLD, depression, morbid obesity, DVT within the last 6 months who developed a spontaneous gluteal hematoma with supratherapeutic INR now with IVC filter in place and maintained on Eliquis who presented with AMS and poor oral intake. She was admitted with severe hypernatremia and septicemia. - Patient Problems (1) Comfort measures only status Comment: - MOLST updated - morphine, atvian - plan for Hospice in the home (2) Severe protein-calorie malnutrition Comment: Nutrition has been poor for sometime with decrese in PO intake over the past year. She has had a 26kg weight loss in the last year with 6kg in the past month. Pre-albumin 8. Plan for palliative consult (3) DVT prophylaxis Comment: Held due to thrombocytopenia and spontaneous bleeding (4) DNR (do not resuscitate) Comment: DNR/DNI Comfort care measure Status and Disposition: Inpatient. Plan for comfort care measures. Hospice at home, possible DC home tomorrow
[2016-10-09] MEDS: Morphine INJ* 2 MG/ML 1 ML SYRINGE IV PRN ×2 (15:04→22:24)
[2016-10-09] MEDS: Sertraline* 100 MG TAB PO SCH (23:42)
[2016-10-10] MEDS: Levothyroxine TAB* 25 MCG TAB PO SCH (05:45)
[2016-10-10] MEDS: Cholecalciferol TAB* 1000 UNITS PO SCH (07:24)
--- NOTE | 2016-10-10 10:39 | PN ---
Subjective Date of Service: 10/10/16 Interval History: patient alert, nonverbal. Pt appears comfortable. Spoke to , plan to send pt to home with hospice sign on in morning Objective Active Medications: Acetaminophen (Tylenol Tab*) 650 mg PO Q4H PRN PRN Reason: FEVER/PAIN Cholecalciferol (Vitamin D Tab*) 1,000 units PO DAILY [facility] Last Admin: 10/10/16 07:24 Dose: Not Given Heparin Sodium (Porcine) (Heparin Flush Picc/Ml/Cvc(*)) 1 ml FLUSH 0600,1800 [facility] PRN Reason: Protocol Last Admin: 10/10/16 06:15 Dose: 1 ml Levothyroxine Sodium (Synthroid Tab*) 25 mcg PO DAILY@0600 [facility] Last Admin: 10/10/16 05:45 Dose: Not Given Morphine Sulfate (Morphine Inj (Syringe)*) 2 mg IV Q4H PRN PRN Reason: PAIN - MILD Last Admin: 10/09/16 22:24 Dose: 2 mg Sertraline HCl (Zoloft*) 100 mg PO BEDTIME [facility] Last Admin: 10/09/16 23:42 Dose: Not Given Vital Signs 10/09/16 10/09/16 10/09/16 15:04 16:04 20:00 Respiratory 16 12 20 Rate 10/09/16 10/09/16 10/10/16 22:24 23:24 07:26 Respiratory 12 20 18 Rate Oxygen Devices in Use Now: None Appearance: obese female laying in bed alert, nonverbal on NAD Eyes: No Scleral Icterus, PERRLA Ears/Nose/Mouth/Throat: NL Teeth, Lips, Gums Neck: NL Appearance and Movements; NL JVP Respiratory: Symmetrical Chest Expansion and Respiratory Effort, Clear to Auscultation Cardiovascular: NL Sounds; No Murmurs; No JVD, RRR, No Edema Abdominal: NL Sounds; No Tenderness; No Distention, - - obese Extremities: No Edema, No Clubbing, Cyanosis Skin: No Rash or Ulcers, No Nodules or Sclerosis Neurological: - - alert Lines/Tubes/Other Access: Clean, Dry and Intact Peripheral IV Nutrition: - - comfort care diet - little po Result Diagrams: 10/08/16 06:43 10/08/16 06:43 Additional Lab and Data: . Microbiology and Other Data: Microbiology 10/05/16 14:55 Urine Culture - Preliminary Urine Proteus Mirabilis 10/05/16 14:45 Aerobic Blood Culture - Preliminary Blood Venous No Growth Day 1 Anaerobic Blood Culture - Preliminary Proteus Mirabilis Blood Culture - Final 10/05/16 13:10 Aerobic Blood Culture - Preliminary Blood Venous No Growth Day 1 Anaerobic Blood Culture - Preliminary No Growth Day 1 Assess/Plan/Problems-Billing Assessment: This is a 71 yo female with a h/o of multiple recent hospitalizations, advanced dementia, RA, HTN, HLD, depression, morbid obesity, DVT within the last 6 months who developed a spontaneous gluteal hematoma with supratherapeutic INR now with IVC filter in place and maintained on Eliquis who presented with AMS and poor oral intake. She was admitted with severe hypernatremia and septicemia. - Patient Problems (1) Comfort measures only status Comment: - MOLST updated - morphine, atvian - plan for Hospice in the home with sign on tomorrow (2) Severe protein-calorie malnutrition Comment: Nutrition has been poor for sometime with decrese in PO intake over the past year. She has had a 26kg weight loss in the last year with 6kg in the past month. Pre-albumin 8. Plan for palliative consult (3) DVT prophylaxis Comment: Held due to thrombocytopenia and spontaneous bleeding (4) DNR (do not resuscitate) Comment: DNR/DNI Comfort care measure Status and Disposition: Inpatient. Plan for comfort care measures. Hospice at home, possible DC home today
[2016-10-10] MEDS: Morphine INJ* 2 MG/ML 1 ML SYRINGE IV PRN (13:04)
[2016-10-10] MEDS ORDERED: Morphine ORAL CONCENTRATE* 5 MG/0.25 ML ORAL.SYRIN SL ONE (16:00)
--- NOTE | 2016-10-11 02:54 | DS ---
DISCHARGE SUMMARY: DATE OF ADMISSION: 10/05/16 DATE OF DISCHARGE: 10/10/16 ATTENDING PHYSICIAN: Dr. Garcia* (report dictated by Barbara Brunson, LATRICE). PRIMARY CARE PROVIDER: Dr. Best. PRIMARY DIAGNOSES: 1. Urinary tract infection with sepsis and bacteremia. 2. Severe protein calorie malnutrition. 3. Hypernatremia secondary to severe dehydration. 4. Acute renal failure. 5. End of life care/comfort care measures. SECONDARY DIAGNOSES: 1. Advanced dementia. 2. Hypertension. 3. Hyperlipidemia. 4. Rheumatoid arthritis. 5. Hypothyroidism. 6. Depression. 7. History of multiple urinary tract infections with hydronephrosis and stent placement. 8. Morbid obesity. 9. History of deep venous thrombosis, previously on anticoagulation with Coumadin; however, status post having spontaneous gluteal hematoma in July 2016. An IVC was placed and was on Eliquis, which was recently discontinued due to spontaneous bleeding gums. HISTORY OF PRESENT ILLNESS AND HOSPITAL COURSE: Please see history and physical by Dr. Miguel for full admission details, but in summary, this is a 71- year-old female with advanced Alzheimer's dementia, who significantly declined over the past 6 months with multiple hospitalizations with sepsis and urinary tract infection as well as dehydration. The patient was brought to the emergency department on 10/05/16 with concern for increased lethargy. She was noted to be hypernatremic with sodium of 160 and noted to be severely dehydrated. She also had an abnormal urinalysis, she was started on antibiotics. She grew Proteus mirabilis in her urine culture as well as 1/4 blood cultures. She was seen in consultation by Infectious Disease physician, Dr. Horn, who agreed with the antibiotics. The patient underwent a renal ultrasound, which showed no hydronephrosis of either kidney and without obstruction. The patient continued to be lethargic for the first several days of her admission and then per more back towards baseline. It was discussed with the that due to multiple hospitalizations, continuing to return with severe dehydration and as per report of the , poor p.o. intake at home and overall declining as well as a noted prealbumin of 8 with severe protein-calorie malnutrition, a palliative hospice consult was initiated. The met with palliative physician, Dr. Ofelia Vickers, whose recommendations were the patient was appropriate and eligible for hospice with limited life expectancy with her advanced Alzheimer's dementia and other comorbidities with her multiple readmissions for sepsis, urinary tract infection , bacteremia, severe hypernatremia secondary to volume depletion. The plan is for the patient to go home with hospice. 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 The plan is for discharge this evening with hospice intake tomorrow morning. The agrees with this plan. DISCHARGE MEDICATIONS: 1. Ativan 1 mg p.o. q.6 hours p.r.n. anxiety/agitation. 2. Morphine oral concentrate 5 mg sublingual q.4 hours p.r.n. pain and shortness of breath. 3. Zoloft 10 mg p.o. at bedtime. 4. Synthroid 25 mcg p.o. daily. 5. Melatonin 5 mg p.o. at bedtime. DISCHARGE PLAN: 1. Discharge this evening to home with hospice intake tomorrow morning at 10 a.m. 2. Comfort care diet. It was discussed with the that we had stopped this for medications and he can offer her medications but it is okay if she does not take them as well as comfort care diet for the patient. A new MOLST has been filled out and is on the chart for DNR/DNI, comfort care measures with do not send back to the hospital per the 's wishes. TIME SPENT: Approximately 60 minutes was spent on this discharge. BARBARA BRUNSON NP CC: Dr. Best* [id number]/[facility] #: [id number] [place]
== END 2016-10-10 17:45 | disposition home or self-care (01) | DRG 871 ==
LOC: ED 12:26 → MED 15:16
PROVIDERS: ADMIT Internal Medicine; ATTEND Hospitalist
DX: A41.89 Other specified sepsis (principal); E43 Unspecified severe protein-calorie malnutrition; N17.9 Acute kidney failure, unspecified; G93.40 Encephalopathy, unspecified; D61.818 Other pancytopenia; E87.0 Hyperosmolality and hypernatremia; D69.6 Thrombocytopenia, unspecified; R13.10 Dysphagia, unspecified; N39.0 Urinary tract infection, site not specified; E86.0 Dehydration; I10 Essential (primary) hypertension; E78.5 Hyperlipidemia, unspecified; M06.9 Rheumatoid arthritis, unspecified; E03.9 Hypothyroidism, unspecified; F32.9 Major depressive disorder, single episode, unspecified; E66.9 Obesity, unspecified; G30.9 Alzheimer's disease, unspecified; F02.80 Dementia in other diseases classified elsewhere, unspecified severity, without behavioral disturbance, psychotic disturbance, mood disturbance, and anxiety; Z66 Do not resuscitate; B96.89 Other specified bacterial agents as the cause of diseases classified elsewhere; Z86.718 Personal history of other venous thrombosis and embolism; Z91.040 Latex allergy status; Z88.8 Allergy status to other drugs, medicaments and biological substances; Z88.1 Allergy status to other antibiotic agents; Z68.36 Body mass index [BMI] 36.0-36.9, adult; Z79.899 Other long term (current) drug therapy; Z79.52 Long term (current) use of systemic steroids; Z79.82 Long term (current) use of aspirin
CPT/HCPCS: 36415; 71010; 76775; 80048; 80053; 80076; 81003; 81015; 82550; 82553; 83605; 83690; 83735; 83880; 84134; 84443; 84484; 85025; 85060; 85610; 85730; 86140; 87040; 87077; 87086; 87184; 87186; 87205; 93005; 99283; J0692; J0696; J2270; J2543; J3480; J7060